=== PATIENT | male | born 1980 | race African-American/Black ===

== ENCOUNTER 2016-11-07 09:15 | Inpatient (IN) | payer MEDICARE, OTHER ==
[~2016-11-07 09:15] MED LIST: QUET50TA PO
[2016-11-07 09:19] VITALS: BP 141/100; PULSE 75; RESP 14; TEMP 97.9; O2SAT 95
--- NOTE | 2016-11-07 09:58 | PD ---
HPI Chief Complaint: Injury Time Seen by Provider: 09:51 Travel History International Travel<30 days: No Contact w/Intl Traveler<30days: No Traveled to known affect area: No History of Present Illness HPI 36-year-old male presents to the emergency department accompanied by his mother , who helps care for him secondary to his psych, with complaint of right shoulder pain after a fall 2 days ago. The mother states he has history of a epileptic seizures and she found him at his house, alone, on the floor and conscious at the time. He is not currently taking medications for seizures. EMS was called to the house and they said it was a nonemergent situation and the mother took him to [facility] where he was evaluated and was told he had fractures to his right shoulder. He was given an arm sling for support and told to follow-up with orthopedics, which they have not done. She says the shoulder has gotten more painful with swelling and she does not like what they told them and feels they did not do anything for him and wants to be reevaluated. The mother states she was told the shoulder was dislocated and they didn't even put back in place. Mother states the patient did have a CT scan of his head, because he did not recall the fall, which was normal per the mother. Denies fever, chills, nausea, vomiting. Allergies to shrimp. History of epileptic seizures, depression, anxiety, bipolar disorder. No other modifying factors or associated signs and symptoms. PFSH Past Medical History Bipolar Disorder: Yes Anxiety: Yes Depression: Yes Cancer: No Cardiovascular Problems: No Diabetes: No Endocrine: No Genitourinary: No Headaches: No Immune Disorder: No Musculoskeletal: No Neurologic: No Psychiatric: Yes ([place]) Reproductive: No Respiratory: No Schizophrenia: Yes Seizures: No Past Surgical History Abdominal Surgery: Yes Other Surgery: Yes ( hernia repair) Social History Alcohol Use: Yes Tobacco Use: Yes (2 PPD) Substance Use: Yes Allergies-Medications (Allergen,Severity, Reaction): Coded Allergies: Shrimp (Verified Allergy, Severe, 11/07/16) Reported Meds & Prescriptions Reported Meds & Active Scripts Active Reported Mirtazapine 30 Mg Tab 30 Mg PO HS [place] (Hydrocodone-Acetaminophen) 5-325 mg Tab 1 Tab PO TID PRN Seroquel XR (Quetiapine Fumarate) 150 Mg Tab 150 Mg PO DAILY Review of Systems Except as stated in HPI: all other systems reviewed are Neg Physical Exam Narrative GENERAL: Well-nourished, well-developed patient, in no acute distress SKIN: Warm and dry. HEAD: Atraumatic. Normocephalic. EYES: Pupils equal and round. No scleral icterus. No injection or drainage. ENT: Mucosa pink and moist. Airway patent. NECK: Supple. Trachea midline. CARDIOVASCULAR: Regular rate. RESPIRATORY: No accessory muscle use. GASTROINTESTINAL: Rounded. MUSCULOSKELETAL: Right shoulder is with tenderness on palpation; mildly edematous and without erythema or ecchymosis; limited range of motion and less than 45 abduction; shoulder does appear different to left, but no obvious deformity.. Shoulders equal. Right upper extremity is supple and non-tense with 2+ radial pulse and sensory intact and without erythema or edema. No obvious deformities. No clubbing. No cyanosis. No edema. NEUROLOGICAL: Awake and alert. Oriented 3. No obvious cranial nerve deficits. Motor grossly within normal limits. Normal speech. PSYCHIATRIC: Appropriate mood and affect; insight and judgment normal. Data Data Last Documented VS Vital Signs Date Time Temp Pulse Resp B/P Pulse Ox O2 Delivery O2 Flow Rate FiO2 11/07/16 09:19 97.9 75 14 141/100 95 Orders Shoulder, Complete (>2vws) (11/07/16 09:50) Ice/Cold Pack (11/07/16 09:50) Ibuprofen (Motrin) (11/07/16 10:00) Ct Shoulder W/O Contrast (11/07/16 ) Morphine Inj (Morphine Inj) (11/07/16 12:30) Basic Metabolic Panel (Bmp) (11/07/16 15:06) Complete Blood Count With Diff (11/07/16 15:06) Prothrombin Time / Inr (Pt) (11/07/16 15:06) Act Partial Throm Time (Ptt) (11/07/16 15:06) Chest, Single Ap (11/07/16 15:06) NPO (11/07/16 15:06) Consult Orthopedic (11/07/16 ) [facility] Medical Decision Making Medical Screen Exam Complete: Yes Emergency Medical Condition: Yes Medical Record Reviewed: Yes Differential Diagnosis Shoulder fracture, shoulder dislocation, medical clearance Narrative Course 36-year-old male with right shoulder injury after an apparent fall 2 days ago. He was evaluated at [facility] and was told he had a fractured shoulder. He was provided with an arm sling and apparently told to follow-up with orthopedic. The patient's mother is at the bedside and she says Uriel Rodriguez never did anything for them, and did not even put his dislocated shoulder back into place and wants his shoulder reevaluated. They were told to follow-up with orthopedic outpatient which they have not done. Shoulder x-ray ordered. Ibuprofen ordered. 1047: Right shoulder x-ray concludes: Last 24 hours Impressions Shoulder X-Ray 11/07/16 0950 Signed Impressions: Service Date/Time: Monday, November 07, 2016 10:13 - CONCLUSION: Comminuted proximal humeral fracture with avulsion fragments. Henry Martin MD Call Out to ortho placed. Dr. Fox ordered morphine. IV site was obtained. 1132: I spoke with Dr. Gentile, orthopedic surgeon, and he recommended CT of the shoulder. CT shoulder ordered. 1459: Right shoulder CT concludes an impacted fracture of the proximal humerus head as described in detail on the report. Call placed to orthopedic surgeon. 1510: I spoke with Dr. Gentile, orthopedic surgeon, and he recommended patient to be admitted for surgery today, consult to him, and admitted to medical. Preop orders entered. 1524: I spoke with BRENNEN Capone, and the patient will be admitted for further medical treatment. Report given. Physician Communication Physician Communication Dr. Gentile, orthopedic surgeon BRENNEN Capone Diagnosis Primary Impression: Right humeral fracture Qualified Code: S42.294D - Other closed nondisplaced fracture of proximal end of right humerus with routine healing, subsequent encounter Admitting Information Admitting Physician Requests: Admit Shahana Parrish Nov 07, 2016 09:58
[2016-11-07] MEDS ORDERED: IBUPROFEN 800 MG TAB PO ONE (10:00)
--- NOTE | 2016-11-07 10:29 | RADRPT ---
EXAM DATE/TIME: 11/07/2016 10:13 [facility] COMPARISON: No previous studies available for comparison. INDICATIONS : Right Shoulder Pain since Sunday MEDICAL HISTORY : None. SURGICAL HISTORY : None. ENCOUNTER: Initial ACUITY: 1 day PAIN SCORE: 10/10 LOCATION: Right upper extremity FINDINGS: Multiple view examination of the right shoulder demonstrates an apparent vertical fracture through th e proximal humerus extending from the head down into the metadiaphyseal region. Ossific fragments are seen medial to the joint which may represent avulsed components. Regional soft tissue swelling. The shoulder is low lying in the glenoid fossa but not dislocated. Osseous structures are otherwise inta ct. Visualized portions of the adjacent lung are clear. CONCLUSION: Comminuted proximal humeral fracture with avulsion fragments. Henry Martin MD on November 07, 2016 at 10:23 Board Certified Radiologist. This report was verified electronically.
[2016-11-07] MEDS ORDERED: NORC5TAB PO (11:55)
[2016-11-07] MEDS ORDERED: QUET150XR PO (11:55)
[2016-11-07] MEDS ORDERED: MIRT30TA PO (11:59)
[2016-11-07] MEDS ORDERED: PROPOFOL 200 MG/20 ML AMP IV ONE (12:00)
[2016-11-07] MEDS ORDERED: ONDANSETRON HCL 4 MG/2 ML VIAL IV PUSH ONE (12:00)
[2016-11-07] MEDS ORDERED: PHENYLEPH/NS 1000 MCG/10 ML SYR IV ONE (12:00)
[2016-11-07] MEDS ORDERED: LACTATED RINGER'S 1000 ML INJ 1,000 ML IV ONE (12:00)
[2016-11-07] MEDS ORDERED: NEOSTIGMINE 3 MG/3 ML SYR IV ONE (12:00)
[2016-11-07] MEDS ORDERED: MORPHINE SULFATE 4 MG/ML INJ IV PUSH ONE (12:30)
--- NOTE | 2016-11-07 14:26 | RADRPT ---
EXAM DATE/TIME: 11/07/2016 13:14 [facility] COMPARISON: CT FACIAL BONES W/O CONTRAST, June 17, 2015, 20:10. INDICATIONS : Fall 2 days ago, right shoulder pain and swelling. RADIATION DOSE: 15.00 CTDIvol (mGy) MEDICAL HISTORY : None SURGICAL HISTORY : None. ENCOUNTER: Initial ACUITY: 2 days PAIN SCALE: 8/10 LOCATION: Right shoulder TECHNIQUE: Volumetric scanning of the shoulder was performed. Using automated exposure control and adjustment o f the mA and/or kV according to patient size, radiation dose was kept as low as reasonably achievable to obtain optimal diagnostic quality images. FINDINGS: Problems with the findings: The examination demonstrates a comminuted fracture involving the right humeral head. There are 2 dist inct portions of the fracture. The first is through the proximal humerus. The second is a direct impa ction fracture of the humeral head against the glenoid. There are multiple fracture fragments arising from the anterior aspect of the humeral head. There is considerable flattening of the anterior aspec t of the humeral head. The glenoid itself has only a very small fracture along the posterior aspect. The scapula is intact. The clavicle is intact. The coracoid process is intact. The limited portion of lung apex visualized is clear. CONCLUSION: 1. Impacted fracture of the proximal humeral head. This is described in detail above. Jadon Dan MD on November 07, 2016 at 14:20 Board Certified Radiologist. This report was verified electronically.
[2016-11-07] MEDS ORDERED: SODIUM CHLOR 0.9% 1000 ML INJ 1,000 ML IV SCH (15:23)
[2016-11-07] MEDS ORDERED: ACETAMINOPHEN 325 MG TAB PO PRN ×2 (15:30→21:15)
[2016-11-07] MEDS ORDERED: ONDANSETRON HCL 4 MG/2 ML VIAL IVP PRN ×2 (15:30→21:15)
[2016-11-07] MEDS: DOCUSATE SODIUM 100 MG CAP PO SCH (15:30)
[2016-11-07] MEDS ORDERED: SODIUM CHLORIDE 0.9% FLUSH 10 ML FLUSH IV FLUSH PRN ×2 (15:30→21:15)
[2016-11-07 15:40] LABS: AUTOMATED NEUTROPHIL # 5.7 TH/MM3 (1.8-7.7); BASOPHIL % 0.5 % (0.0-2.0); EOSINOPHIL # 0.3 TH/MM3 (0-0.4); EOSINOPHIL % 2.8 % (0.0-4.0); HEMATOCRIT 42.7 % (39.0-51.0); HEMO FLAGS DIFF FINAL; LYMPH % 27.1 % (9.0-44.0); LYMPHOCYTE # 2.6 TH/MM3 (1.0-4.8); MEAN CELL VOLUME 89.3 FL (80.0-100.0); MEAN CORPUSCULAR HEMOGLOBIN 29.8 PG (27.0-34.0); MEAN CORPUSCULAR HGB CONC 33.4 % (32.0-36.0); MONO % 10.1 % (0.0-8.0); NEUT % 59.5 % (16.0-70.0); PLATELET COUNT 170 TH/MM3 (150-450); RED BLOOD COUNT 4.79 MIL/MM3 (4.50-5.90); WHITE BLOOD COUNT 9.5 TH/MM3 (4.0-11.0)
[2016-11-07 15:48] LABS: APTT (PATIENT) 30.8 SEC (24.3-30.1); PROTHROMBIN TIME - PATIENT 10.6 SEC (9.8-11.6)
[2016-11-07 15:56] LABS: BICARBONATE 31.6 MEQ/L (21.0-32.0); POTASSIUM 4.1 MEQ/L (3.5-5.1)
--- NOTE | 2016-11-07 16:22 | RADRPT ---
EXAM DATE/TIME: 11/07/2016 15:14 [facility] COMPARISON: No previous studies available for comparison. INDICATIONS : Evaluate for pneumonia, pneumothorax or communicable disease. Pre op for shoulder surgery today. MEDICAL HISTORY : None. SURGICAL HISTORY : None. ENCOUNTER: Initial ACUITY: 1 day PAIN SCORE: 0/10 LOCATION: Left chest FINDINGS: A single view of the chest demonstrates the lungs to be symmetrically aerated without evidence of mas s, infiltrate or effusion. The cardiomediastinal contours are unremarkable. Right humeral head fract ure noted. CONCLUSION: No acute disease. Bonifacio Avila MD on November 07, 2016 at 16:20 Board Certified Radiologist. This report was verified electronically.
[2016-11-07 17:05] VITALS: BP 133/88; PULSE 78; RESP 15; O2SAT 98
[2016-11-07] MEDS ORDERED: GENTAMICIN SULFATE 80 MG/2 ML VIAL ONE (17:11)
[2016-11-07 17:30] VITALS: BP 136/86; PULSE 75; RESP 17; TEMP 96; O2SAT 99
[2016-11-07] MEDS ORDERED: ACETAMINOPHEN 1000 MG/100 ML VIAL IV ONE (18:21)
[2016-11-07] MEDS ORDERED: DEXAMETHASONE SOD PHOS 4 MG/ML VIAL ONE (18:21)
[2016-11-07] MEDS ORDERED: FAMOTIDINE 20 MG/2 ML VIAL ONE (18:22)
--- NOTE | 2016-11-07 18:24 | MB ---
cc: HANNAH ARELLANO DATE OF CONSULTATION 11/07/16 REASON FOR CONSULTATION Right shoulder fracture-dislocation. HISTORY OF PRESENT ILLNESS Corbin Edmondson is a 36-year-old male who probably sustained a seizure two days ago which resulted in a fracture-dislocation of his right shoulder. He was first seen at [facility] [facility] and he was told to follow up with orthopedic surgeon an outpatient setting. He had been in chronic pain and presented to the ER at [facility] today where x-rays were highly suspicious for any fracture dislocation which was confirmed with a CT scan. He has a very large compression fracture involving the anterior aspect of the articular surface of the humeral head with the shoulder in a posterior lock dislocation. The patient remains in marked pain. He is being admitted to the medical service for further medical workup including seizure workup. He is indicated for surgical management of his shoulder. Consultation is requested with the undersigned. PAST MEDICAL HISTORY Negative for active medical problem. MEDICATIONS She takes no regular medications. PAST SURGICAL HISTORY Umbilical hernia repair. ALLERGIES He has no known drug allergies. 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 He does use tobacco and he does use alcohol. He does have some past history of use of marijuana and occasional cocaine, but he denies active use of these drugs now and denies ever having used intravenous drugs. PHYSICAL EXAMINATION GENERAL: Alert, oriented, appropriate, moderate distress with his right shoulder significantly swollen and his arm folded across his abdomen. NECK: His cervical spine is nontender with full range motion. HEENT: His extraocular muscles are intact. His face exam is normal. EXTREMITIES: Left upper extremity exam is normal. Lower extremity exam is normal. His right shoulder shows marked swelling and tenderness to palpation. Range of motion not tested. Elbow and wrist nontender to direct palpation. NEUROLOGIC: No neurologic deficit is identified. Pulses intact and normal. INTEGUMENTARY: Normal. IMAGING STUDIES The x-rays and CT scan are reviewed which is consistent with a posterior fracture dislocation which is associated with seizure disorder. MEDICAL DECISION MAKING His condition was discussed. The options of treatment were discussed. He does say that he was drinking prior to this happening and that sounds like it is probably an alcoholic seizure. He has no history of prior seizure. Officially, he is being admitted to the medical service, but I see no obvious contraindication to proceeding with surgical management when an OR team is available. RECOMMENDATION Open reduction and internal fixation of right shoulder fracture-dislocation. The goal of the surgery is to reduce the shoulder and to repair the main metaphyseal healed fracture fragments to themselves. Additionally, we talked about possible need for a partial shoulder replacement or some type of resurfacing in the future or even the possibility of a total shoulder replacement. We talked about probable use of some type of abduction or gunslinger brace. Surgical technique was discussed including discussion of risk of infection, nerve damage, blood vessel damage, anesthetic complications, medical complications and unforeseen possible complications. Additionally, we talked about a significant likelihood of repeat dislocation, further fracturing and need for more extensive intervention including the possibility of some type of shoulder replacement. All of his questions were answered. A detailed informed consent was obtained. MD NATALIA Holder/ /4:42 PM /6:06 PM
[2016-11-07] MEDS ORDERED: MIDAZOLAM HCL 2 MG/2 ML VIAL ONE (18:25)
[2016-11-07] MEDS ORDERED: fentaNYL CITRATE 250 MCG/5 ML AMP ONE ×2 (18:26→20:48)
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
[2016-11-07] MEDS ORDERED: LORazepam 1 MG TAB PO ONE (18:45)
[2016-11-07] MEDS ORDERED: ceFAZolin 2 GM PREMIX 50 ML ONE (19:02)
[2016-11-07 20:12] LABS: MAGNESIUM 2.4 MG/DL (1.5-2.5)
[2016-11-07 20:24] LABS: CKMB 1.3 NG/ML (0.5-3.6)
[2016-11-07] MEDS ORDERED: SODIUM CHLORIDE 0.9% FLUSH 10 ML FLUSH IV FLUSH SCH (21:00)
--- NOTE | 2016-11-07 21:05 | PD.OP ---
Operative Report Preoperative Diagnosis: (1) Closed fracture dislocation of right shoulder joint Postoperative Diagnosis: (1) Closed fracture dislocation of right shoulder joint Procedure: Right shoulder open repair of posterior fracture/dislocation Anesthesia: General Surgeon: Rosales Gentile MD Frame Operator(s): Johnny BETANCUR Resident Surgeon: none Operation and Findings: see dictation Rosales Gentile MD Nov 07, 2016 21:05
[2016-11-07] MEDS ORDERED: MISCELLANEOUS PHARMACY INFORMATION XX ONE (21:15)
[2016-11-07] MEDS ORDERED: NALOXONE HCL 0.4 MG/ML AMP IV PRN (21:15)
[2016-11-07] MEDS ORDERED: diphenhydrAMINE HCL 25 MG CAP PO PRN (21:15)
[2016-11-07] MEDS ORDERED: Post-op Orders (for Pharmacy) MISC XX ONE (21:15)
[2016-11-07] MEDS ORDERED: MISCELLANEOUS NURSING INFORMATION XX PRN (21:15)
[2016-11-07] MEDS ORDERED: *morphine SULFATE 8 MG/ML PERIprocedure ONLY ONE (21:34)
[2016-11-07] MEDS ORDERED: *MEPERIDINE 25 MG INJ VIAL PERIprocedural Use ONLY ONE (21:35)
[2016-11-07] MEDS: DEXT 5%-NACL 0.45% 1000 ML INJ 1,000 ML IV SCH (21:45)
[2016-11-07] MEDS: PCA - TOTAL MG MORPHINE DELIVERED PER SHIFT SCH (22:00)
[2016-11-07] MEDS: MORPHINE SULFATE 30 MG/30 ML PCA IV SCH (22:16)
[2016-11-07] MEDS: MIRTAZAPINE 15 MG TAB PO SCH (22:26)
[2016-11-07] MEDS: QUEtiapine FUMARATE 25 MG TAB PO SCH (22:26)
[2016-11-07] MEDS: DIVALPROEX SODIUM E.R. 500 MG TAB PO SCH (22:26)
[2016-11-07 22:42] VITALS: BP 161/97; PULSE 79; RESP 17; TEMP 97.2; O2SAT 96
--- NOTE | 2016-11-07 22:59 | RADRPT ---
EXAM DATE/TIME: 11/07/2016 20:42 [facility] COMPARISON: SHOULDER RIGHT COMPLETE (>2VWS), November 07, 2016, 10:13. INDICATIONS : ORIF right shoulder. MEDICAL HISTORY : None. SURGICAL HISTORY : None. ENCOUNTER: Subsequent ACUITY: 2 days PAIN SCORE: Non-responsive. LOCATION: Right upper extremity FINDINGS: 5 images were recorded digitally using C-arm in the operating room. There are total of 5 screws in t he proximal humerus. CONCLUSION: Intraoperative images. Rao Maciel MD on November 07, 2016 at 22:56 Board Certified Radiologist. This report was verified electronically.
--- NOTE | 2016-11-07 23:33 | HHI.HP ---
[facility] Primary [facility] Physician Non-Staff Admission Diagnosis right proximal humeral fracture, dislocation Diagnoses: (1) Right humeral fracture Diagnosis: Principal (2) Seizure cerebral Diagnosis: Principal Chief Complaint: pain to the right shoulder Travel History International Travel<30 Days: No Contact w/Intl Traveler <30 Da: No Traveled to Known Affected Are: No History of Present Illness patient is a 36 y/o male, not a good historian, who apparently fell about two days ago,presented to ER with pain to the right shoulder. he doesn't remember how he fell. he's not sure if he had a seizure in the past . he was found to have right humeral fracture for which he underwent surgical repair. at the time of my evaluation he was resting comfortably with no acute distress with mild pain to the right upper extremity. Review of Systems ROS Limitations: Poor Historian Constitutional: DENIES: Fever, Weight loss, Chills, Night Sweats Eyes: DENIES: Blurred vision, Diplopia, Vision loss, Double Vision Ears, nose, mouth, throat: DENIES: Tinnitus, Vertigo, Throat pain, Epistaxis Respiratory: DENIES: Apneas, Cough, Snoring, Wheezing, Hemoptysis, Sputum production, Shortness of breath Cardiovascular: DENIES: Chest pain, Palpitations, Syncope, Dyspnea on Exertion , PND, Lower Extremity Edema, Orthopnea, Claudication Gastrointestinal: DENIES: Abdominal pain, Black stools, Bloody stools, Constipation, Diarrhea, Nausea, Vomiting, Difficulty Swallowing, Anorexia Genitourinary: DENIES: Urinary frequency, Urgency, Hematuria, Dysuria Musculoskeletal: COMPLAINS OF: Joint pain (right shoulder), DENIES: Muscle aches, Stiffness, Joint Swelling Integumentary: DENIES: Rash Neurologic: DENIES: Abnormal gait, Headache, Localized weakness, Paresthesias, Seizures, Speech Problems, Tremor, Poor Balance Psychiatric: DENIES: Anxiety, Confusion, Mood changes, Depression, Hallucinations, Agitation, Suicidal Ideation, Homicidal Ideation, Delusions Past Family Social History Past Medical History bipolar disorder seizure disorder? Past Surgical History hernia repair Reported Medications Mirtazapine 30 Mg Tab 30 Mg PO HS [place] (Hydrocodone-Acetaminophen) 5-325 mg Tab 1 Tab PO TID PRN Seroquel XR (Quetiapine Fumarate) 150 Mg Tab 150 Mg PO DAILY Allergies: Coded Allergies: Shrimp (Verified Allergy, Severe, 11/07/16) Active Ordered Medications Current Medications Ibuprofen (Motrin) 800 mg ONCE ONCE PO Last administered on 11/07/16 10:08; Start 11/07/16 at 10:00; Stop 11/07/16 at 10:01; Status DC Morphine Sulfate 4 mg 4 mg ONCE ONCE IV PUSH Last administered on 11/07/16 12: 30; Start 11/07/16 at 12:30; Stop 11/07/16 at 12:31; Status DC Sodium Chloride (NS 1000 ml Inj) 1,000 ml @ 100 mls/hr Q10H IV Last administered on 11/07/16 16:01; Start 11/07/16 at 15:23; Stop 11/07/16 at 21:19; Status DC Sodium Chloride (NS Flush) 2 ml UNSCH PRN IV FLUSH FLUSH AFTER USING IV ACCESS ; Start 11/07/16 at 15:30; Stop 11/07/16 at 21:20; Status DC Sodium Chloride (NS Flush) 2 ml BID IV FLUSH ; Start 11/07/16 at 21:00; Stop 11/07 at 21:20; Status DC Acetaminophen (Tylenol) 650 mg Q4H PRN PO TEMP > 100.4; Start 11/07/16 at 15:30 ; Stop 11/07/16 at 21:18; Status DC Ondansetron HCl (Zofran Inj) 4 mg Q6H PRN IVP NAUSEA OR VOMITING; Start at 15:30; Stop 11/07/16 at 21:17; Status DC Docusate Sodium (Colace) 100 mg Q12H PO ; Start 11/07/16 at 15:30 Magnesium Hydroxide (Milk Of Magnesia Liq) 30 ml Q12H PRN PO CONSTIPATION; Start 11/07/16 at 15:30 Mirtazapine (Remeron) 30 mg HS PO Last administered on 11/07/16 22:26; Start at 21:00 Non-Formulary Medication 150 mg DAILY PO ; Start 11/08/16 at 09:00; Status UNV Quetiapine Fumarate (SEROquel) 75 mg BID PO Last administered on 11/07/16 22:26 ; Start 11/07/16 at 21:00 Gentamicin Sulfate (Gentamicin Inj) 160 mg STK-MED ONCE .ROUTE Last administered on 11/07/16 19:17; Start 11/07/16 at 17:11; Stop 11/07/16 at 17:12; Status DC Dexamethasone Sodium Phosphate (Decadron Inj) 4 mg STK-MED ONCE .ROUTE ; Start 11/07/16 at 18:21; Stop 11/07/16 at 18:22; Status DC Acetaminophen (Ofirmev Inj) 1,000 mg STK-MED ONCE IV ; Start 11/07/16 at 18:21; Stop 11/07/16 at 18:22; Status DC Famotidine (Pepcid Inj) 20 mg STK-MED ONCE .ROUTE ; Start 11/07/16 at 18:22; Stop 11/07/16 at 18:23; Status DC Midazolam HCl (Versed Inj) 2 mg STK-MED ONCE .ROUTE ; Start 11/07/16 at 18:25; Stop 11/07/16 at 18:26; Status DC Fentanyl Citrate (fentaNYL INJ) 250 mcg STK-MED ONCE .ROUTE ; Start 11/07/16 at 18:26; Stop 11/07/16 at 18:27; Status DC Divalproex Sodium (Depakote Er) 500 mg BID PO Last administered on 11/07/16 22: 26; Start 11/07/16 at 21:00 Lorazepam 1 mg 1 mg ONCE ONCE PO ; Start 11/07/16 at 18:45; Stop 11/07/16 at 18: 46; Status DC Cefazolin Sodium/ Dextrose (Ancef 2 Gm Premix) 50 ml @ As Directed STK-MED ONCE .ROUTE Last administered on 11/07/16 19:01; Start 11/07/16 at 19:02; Stop at 19:03; Status DC Fentanyl Citrate 250 mcg 250 mcg STK-MED ONCE .ROUTE ; Start 11/07/16 at 20:48; Stop 11/07/16 at 20:49; Status DC Dextrose/Sodium Chloride (D5W-1/2 NS 1000 ml Inj) 1,000 ml @ 100 mls/hr Q10H IV Last administered on 11/07/16t 21:45; Start 11/07/16 at 22:00 Sodium Chloride (NS Flush) 2 ml UNSCH PRN IV FLUSH FLUSH AFTER USING IV ACCESS ; Start 11/07/16 at 21:15 Sodium Chloride (NS Flush) 2 ml BID IV FLUSH ; Start 11/08/16 at 09:00 Miscellaneous Information STAT ONCE XX ; Start 11/07/16 at 21:15; Stop 11/07/16 at 21:26; Status DC Cefazolin Sodium/ Dextrose (Ancef 2 Gm Premix) 50 ml @ 100 mls/hr Q8H IV ; Start 11/08/16 at 02:00; Stop 11/08/16 at 02:01 Miscellaneous Information UNSCH PRN XX SEE LABEL COMMENTS; Start 11/07/16 at 21 :15 Miscellaneous Medication ([facility] [place] [facility] Information) ONCE ONCE XX ; Start 11/07 at 21:15; Stop 11/07/16 at 21:17; Status DC Oxycodone/ Acetaminophen (Percocet 5-325 Mg) 1 tab Q4H PRN PO PAIN LESS THAN 5 ON SCALE; Start 11/07/16 at 21:15 Oxycodone/ Acetaminophen (Percocet 5-325 Mg) 2 tab Q6H PRN PO PAIN GREATER THAN/EQUAL TO 5; Start 11/07/16 at 21:15 Acetaminophen (Tylenol) 650 mg Q6H PRN PO Pain <5 or Temperature > 101.5; Start 11/07/16 at 21:15 Ondansetron HCl (Zofran Inj) 4 mg Q4H PRN IVP NAUSEA OR VOMITING; Start at 21:15 Calcium/Vitamin D (Oscal-D 250-125) 250 mg TID PO ; Start 11/08/16 at 09:00 Multivitamins/ Minerals Therapeutic (Theragran M Tab) 1 tab DAILY PO ; Start 11/08/16 at 09:00 Diphenhydramine HCl (Benadryl) 25 mg Q6H PRN PO ITCHING; Start 11/07/16 at 21:15 Thiamine HCl (Vitamin B1) 100 mg DAILY PO ; Start 11/08/16 at 09:00 Folic Acid (Folate) 1 mg DAILY PO ; Start 11/08/16 at 09:00 Naloxone HCl (Narcan Inj) 0.4 mg UNSCH PRN IV RESPIRATORY RATE LESS THAN 10; Start 11/07/16 at 21:15 Morphine Sulfate (Morphine 1 Mg/ ml INFORMATION TECHNOLOGY ASSISTANT) 30 mg UNSCH IV Last administered on 22:16; Start 11/07/16 at 21:15 INFORMATION TECHNOLOGY ASSISTANT Dosage Infused (Pha) 1 Q8HR .XX Last administered on 11/07/16 22:00; Start 11/07/16 at 22:00 Morphine Sulfate (*morphine INJ PERIprocedure ONLY) 8 mg STK-MED ONCE .ROUTE Last administered on 11/07/16 21:30; Start 11/07/16 at 21:34; Stop 11/07/16 at 21: 35; Status DC Meperidine HCl (*DEMEROL INJ PERIprocedural ONLY) 25 mg STK-MED ONCE .ROUTE Last administered on 11/07/16 21:30; Start 11/07/16 at 21:35; Stop 11/07/16 at 21: 36; Status DC Family History stroke in mother. Social History smokes a couple of cigarettes a day- snores cocaine occasionally. Physical Exam Vital Signs Vital Signs Date Time Temp Pulse Resp B/P Pulse Ox O2 Delivery O2 Flow Rate FiO2 11/07/16 22:42 97.2 79 17 161/97 96 11/07/16 22:16 16 11/07/16 22:10 98.3 77 15 163/94 Nasal Cannula 3 11/07/16 22:00 67 15 164/94 98 Nasal Cannula 3 11/07/16 22:00 15 11/07/16 21:45 68 16 168/96 97 Nasal Cannula 3 11/07/16 21:30 94 16 166/99 97 Nasal Cannula 4 11/07/16 21:22 98.9 83 15 173/101 93 Nasal Cannula 4 11/07/16 17:30 96.0 75 17 136/86 99 11/07/16 17:05 78 15 133/88 98 Room Air 11/07/16 09:19 97.9 75 14 141/100 95 Physical Exam GENERAL: This is a well-nourished, well-developed patient, in no apparent distress. SKIN: No rashes, ecchymoses or lesions. Cool and dry. HEAD: Atraumatic. Normocephalic. No temporal or scalp tenderness. EYES: Pupils equal round and reactive. Extraocular motions intact. No scleral icterus. No injection or drainage. ENT: Nose without bleeding, purulent drainage or septal hematoma. Throat without erythema, tonsillar hypertrophy or exudate. Uvula midline. Airway patent. NECK: Trachea midline. No JVD or lymphadenopathy. Supple, nontender, no meningeal signs. CARDIOVASCULAR: Regular rate and rhythm without murmurs, gallops, or rubs. RESPIRATORY: Clear to auscultation. Breath sounds equal bilaterally. No wheezes , rales, or rhonchi. GASTROINTESTINAL: Abdomen soft, non-tender, nondistended. No hepato-splenomegaly , or palpable masses. No guarding. MUSCULOSKELETAL:right shoulder in sling. NEUROLOGICAL: Awake and alert. Cranial nerves II through XII intact. Motor and sensory grossly within normal limits. Five out of 5 muscle strength in all muscle groups. Normal speech. Laboratory Laboratory Tests Test 11/07/16 15:17 White Blood Count 9.5 Red Blood Count 4.79 Hemoglobin 14.3 Hematocrit 42.7 Mean Corpuscular Volume 89.3 Mean Corpuscular Hemoglobin 29.8 Mean Corpuscular Hemoglobin 33.4 Concent Red Cell Distribution Width 15.0 Platelet Count 170 Mean Platelet Volume 10.9 Neutrophils (%) (Auto) 59.5 Lymphocytes (%) (Auto) 27.1 Monocytes (%) (Auto) 10.1 Eosinophils (%) (Auto) 2.8 Basophils (%) (Auto) 0.5 Neutrophils # (Auto) 5.7 Lymphocytes # (Auto) 2.6 Monocytes # (Auto) 1.0 Eosinophils # (Auto) 0.3 Basophils # (Auto) 0.0 CBC Comment DIFF FINAL Differential Comment Erythrocyte Sedimentation Rate 31 Prothrombin Time 10.6 Prothromb Time International 1.0 Ratio Activated Partial 30.8 Thromboplast Time Sodium Level 138 Potassium Level 4.1 Chloride Level 101 Carbon Dioxide Level 31.6 Anion Gap 5 Blood Urea Nitrogen 5 Creatinine 1.12 Estimat Glomerular Filtration 90 Rate Random Glucose 100 Calcium Level 8.9 Magnesium Level 2.4 Total Creatine Kinase 3503 Creatine Kinase MB 1.3 Creatine Kinase MB % 0.0 Vitamin B12 Level 349 Thyroid Stimulating Hormone 1.720 3rd Gen Valproic Acid (Depakene) Level 5 Result Diagram: 11/07/16 1517 11/07/16 1517 Imaging Last Impressions Chest X-Ray 11/07/16 1506 Signed Impressions: Service Date/Time: Monday, November 07, 2016 15:14 - CONCLUSION: No acute disease. Bonifacio Avila MD Shoulder X-Ray 11/07/16 0950 Signed Impressions: Service Date/Time: Monday, November 07, 2016 10:13 - CONCLUSION: Comminuted proximal humeral fracture with avulsion fragments. Henry Martin MD Upper Extremity CT 11/07/16 0000 Signed Impressions: Service Date/Time: Monday, November 07, 2016 13:14 - CONCLUSION: 1. Impacted fracture of the proximal humeral head. This is described in detail above. Jadon Dan MD Assessment and Plan Assessment and Plan A/P - right humeral fracture after a fall- s/p open repair continue with pain control and PT/OT- management per ortho -possible seizure EEG and MRI brain pending. seizure precautions- continue with Depakote- neurology consult appreciated. -rhabdomyolysis- continue IV fluid and monitor the CPK level. -bipolar disorder; resumed home meds -DVT prophylaxis; with SCD's Discussed Condition With the patient. Physician Certification 2 Midnight Certification Type: Admission for Inpatient Services Order for Inpatient Services The services are ordered in accordance with Medicare regulations or non- Medicare payer requirements, as applicable. In the case of services not specified as inpatient-only, they are appropriately provided as inpatient services in accordance with the 2-midnight benchmark. Estimated LOS (days): 2 days is the estimated time the patient will need to remain in the hospital, assuming treatment plan goals are met and no additional complications. Post-Hospital Plan: Home Problem Qualifiers (1) Right humeral fracture: Qualified Code: S42.294D - Other closed nondisplaced fracture of proximal end of right humerus with routine healing, subsequent encounter Shavon Isbell MD Nov 07, 2016 23:33
[2016-11-08] MEDS ORDERED: ceFAZolin 2 GM PREMIX 50 ML IV SCH (02:00)
[2016-11-08] MEDS: DOCUSATE SODIUM 100 MG CAP PO SCH ×2 (03:30→18:08)
[2016-11-08 04:20] VITALS: BP 156/92; PULSE 62; RESP 17; TEMP 98.3; O2SAT 97
[2016-11-08] MEDS: PCA - TOTAL MG MORPHINE DELIVERED PER SHIFT SCH ×3 (05:08→22:00)
[2016-11-08 06:27] VITALS: O2SAT 94
--- NOTE | 2016-11-08 07:18 | PD.ORT.PN ---
Subjective Subjective Remarks Patient comfortable. Pain controlled. NAD. Objective Vitals Vital Signs Date Time Temp Pulse Resp B/P Pulse Ox O2 Delivery O2 Flow Rate FiO2 11/08/16 05:08 18 11/08/16 04:20 98.3 62 17 156/92 97 11/07/16 22:42 97.2 79 17 161/97 96 11/07/16 22:16 16 11/07/16 22:10 98.3 77 15 163/94 Nasal Cannula 3 11/07/16 22:00 67 15 164/94 98 Nasal Cannula 3 11/07/16 22:00 15 11/07/16 21:45 68 16 168/96 97 Nasal Cannula 3 11/07/16 21:30 94 16 166/99 97 Nasal Cannula 4 11/07/16 21:22 98.9 83 15 173/101 93 Nasal Cannula 4 11/07/16 17:30 96.0 75 17 136/86 99 11/07/16 17:05 78 15 133/88 98 Room Air 11/07/16 09:19 97.9 75 14 141/100 95 I/O 11/07/16 11/07/16 11/07/16 11/08/16 11/08/16 11/08/16 07:00 15:00 23:00 07:00 15:00 23:00 Intake Total 2260 ml 845 ml Output Total 1100 ml 2150 ml Balance 1160 ml -1305 ml Intake Oral 360 ml 480 ml IV Total 300 ml 365 ml Other 1600 ml Output Urine Total 900 ml 2150 ml Estimated Blood Loss 200 ml Other 0 ml # Bowel Movements 0 0 Result Diagram: 11/07/16 1517 11/07/16 1517 Other Results Laboratory Tests Test 11/07/16 15:17 Prothrombin Time 10.6 SEC (9.8-11.6) Prothromb Time International 1.0 RATIO Ratio Imaging Last 24 hours Impressions Chest X-Ray 11/07/16 1506 Signed Impressions: Service Date/Time: Monday, November 07, 2016 15:14 - CONCLUSION: No acute disease. Bonifacio Avila MD Shoulder X-Ray 11/07/16 0950 Signed Impressions: Service Date/Time: Monday, November 07, 2016 10:13 - CONCLUSION: Comminuted proximal humeral fracture with avulsion fragments. Henry Martin MD Procedures Right shoulder open repair of posterior fracture/dislocation Objective Remarks Right shoulder dressing in place C/D/I abduction pillow in place +sensation 2+ radial pulses good movement of digits Assessment & Plan Ortho Post Op Day #: 1 Problem List: (1) Closed fracture dislocation of right shoulder joint Assessment and Plan POD #1 Right shoulder open repair of posterior fracture/dislocation Pain management - DECK MECHANIC and Percocet Order for gun-slinger brace, in neutral position, to be worn at all times. Physical therapy - gait training only. No therapy to right shoulder. Continue standard meds D/C planning - anticipating home Monitor Johnny Araiza Nov 08, 2016 07:18
[2016-11-08 07:34] LABS: ALT (GPT) 28 U/L (12-78); ANION GAP 4 MEQ/L (5-15); AST (GOT) 37 U/L (15-37); BICARBONATE 34.6 MEQ/L (21.0-32.0); BLOOD UREA NITROGEN 7 MG/DL (7-18); CHLORIDE 102 MEQ/L (98-107); GLOMERULAR FILTRATION RATE 84 ML/MIN (>89); POTASSIUM 4.2 MEQ/L (3.5-5.1); SODIUM (NA) 141 MEQ/L (136-145)
[2016-11-08 07:48] LABS: ALKALINE PHOSPHATASE 81 U/L (45-117); CREATINE KINASE 2737 U/L (39-308); TOTAL BILIRUBIN ADULT 0.3 MG/DL (0.2-1.0)
--- NOTE | 2016-11-08 07:49 | HHI.PR ---
Subjective Remarks The patient is seen in the chair, appears in not acute distress. However he says he has pain in his shoulder. He is using the TIN CAN FEEDER pump. No nausea, vomiting, diarrhea or constipation. Denies chest pain or shortness of breath. Says he did not have any seizures. Denies fevers or chills. No muscle pain Objective Vitals Vital Signs Date Time Temp Pulse Resp B/P Pulse Ox O2 Delivery O2 Flow Rate FiO2 11/08/16 07:15 Room Air 11/08/16 06:27 94 Nasal Cannula 1.00 11/08/16 05:08 18 11/08/16 04:20 98.3 62 17 156/92 97 11/07/16 22:42 97.2 79 17 161/97 96 11/07/16 22:16 16 11/07/16 22:10 98.3 77 15 163/94 Nasal Cannula 3 11/07/16 22:00 67 15 164/94 98 Nasal Cannula 3 11/07/16 22:00 15 11/07/16 21:45 68 16 168/96 97 Nasal Cannula 3 11/07/16 21:30 94 16 166/99 97 Nasal Cannula 4 11/07/16 21:22 98.9 83 15 173/101 93 Nasal Cannula 4 11/07/16 17:30 96.0 75 17 136/86 99 11/07/16 17:05 78 15 133/88 98 Room Air 11/07/16 09:19 97.9 75 14 141/100 95 I/O 11/07/16 11/07/16 11/07/16 11/08/16 11/08/16 11/08/16 07:00 15:00 23:00 07:00 15:00 23:00 Intake Total 2260 ml 845 ml Output Total 1100 ml 2150 ml Balance 1160 ml -1305 ml Intake Oral 360 ml 480 ml IV Total 300 ml 365 ml Other 1600 ml Output Urine Total 900 ml 2150 ml Estimated Blood Loss 200 ml Other 0 ml # Bowel Movements 0 0 Result Diagram: 11/07/16 1517 11/08/16 0650 Imaging Last Impressions Chest X-Ray 11/07/16 1506 Signed Impressions: Service Date/Time: Monday, November 07, 2016 15:14 - CONCLUSION: No acute disease. Bonifacio Avila MD Shoulder X-Ray 11/07/16 0950 Signed Impressions: Service Date/Time: Monday, November 07, 2016 10:13 - CONCLUSION: Comminuted proximal humeral fracture with avulsion fragments. Henry Martin MD Upper Extremity CT 11/07/16 0000 Signed Impressions: Service Date/Time: Monday, November 07, 2016 13:14 - CONCLUSION: 1. Impacted fracture of the proximal humeral head. This is described in detail above. Jadon Dan MD Objective Remarks GENERAL: 36-year-old male well nourished, well developed patient appears in not acute distress. SKIN: Warm and dry. HEAD: Normocephalic. EYES: No scleral icterus. No injection or drainage. NECK: Supple, trachea midline. No JVD or lymphadenopathy. CARDIOVASCULAR: Regular rate and rhythm without murmurs, gallops, or rubs. RESPIRATORY: Breath sounds equal bilaterally. No accessory muscle use. GASTROINTESTINAL: Abdomen soft, non-tender, nondistended. MUSCULOSKELETAL: Left shorter about in sling. No cyanosis, or edema. BACK: Nontender without obvious deformity. No CVA tenderness. Procedures S/P Right shoulder open repair of posterior fracture/dislocation by Dr Steven alonzo 11/08/16 A/P Problem List: (1) Right humeral fracture ICD Code: S42.301A Status: Acute (2) Seizure cerebral ICD Code: I67.89 Status: Acute Assessment and Plan Right humeral fracture after a fall- (Closed fracture dislocation of the right shoulder joint) S/P Right shoulder open repair of posterior fracture/dislocation by Dr Steven alonzo 11/08/16 Continue with pain control and PT/OT- management per ortho Possible seizure EEG and MRI brain pending. seizure precautions- continue with Depakote- neurology consult appreciated. Rhabdomyolysis- continue IV fluid and monitor the CPK level. CPK improving. Monitor also kidney function. Cont IVF. -bipolar disorder; resumed home meds -DVT prophylaxis; with SCD's Discussed Condition With the patient, nurse. Discharge when cleared by improved and cleared by consultants. Problem Qualifiers (1) Right humeral fracture: Qualified Code: S42.294D - Other closed nondisplaced fracture of proximal end of right humerus with routine healing, subsequent encounter Isabelle Pricne MD Nov 08, 2016 07:49
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
[2016-11-08 08:00] VITALS: BP 153/93; PULSE 77; RESP 16; TEMP 97.5; O2SAT 100
[2016-11-08] MEDS: DEXT 5%-NACL 0.45% 1000 ML INJ 1,000 ML IV SCH ×2 (08:00→18:00)
[2016-11-08 08:21] LABS: CKMB 1.5 NG/ML (0.5-3.6)
[2016-11-08] MEDS: CALCIUM/VITAMIN D 250 MG/125 U TAB PO SCH ×3 (08:28→18:08)
[2016-11-08] MEDS: QUEtiapine FUMARATE 25 MG TAB PO SCH ×2 (08:28→20:55)
[2016-11-08] MEDS: FOLIC ACID 1 MG TAB PO SCH (08:28)
[2016-11-08] MEDS: MULTIVITAMINS/MINERALS THERAPEUTIC TAB PO SCH (08:28)
[2016-11-08] MEDS: DIVALPROEX SODIUM E.R. 500 MG TAB PO SCH ×2 (08:28→20:55)
[2016-11-08] MEDS: SODIUM CHLORIDE 0.9% FLUSH 10 ML FLUSH IV FLUSH SCH ×2 (08:28→20:55)
[2016-11-08] MEDS: THIAMINE HCL 100 MG TAB PO SCH (08:28)
[2016-11-08] MEDS ORDERED: QUETIAPINE 150 MG PO SCH (09:00)
[2016-11-08 11:46] VITALS: BP 151/90; PULSE 80; RESP 17; TEMP 98.7; O2SAT 97
[2016-11-08] MEDS ORDERED: DEPA500T3 PO (11:59)
[2016-11-08] MEDS ORDERED: NORC5TAB PO (11:59)
[2016-11-08] MEDS ORDERED: VITA100T2 PO (11:59)
[2016-11-08] MEDS: oxyCODONE/ACETAMINOPHEN 5 MG/325 MG TAB PO PRN (13:11)
--- NOTE | 2016-11-08 15:04 | RADRPT ---
EXAM DATE/TIME: 11/08/2016 13:58 [place] COMPARISON: No previous studies available for comparison. INDICATIONS : Epilepsy. MEDICAL HISTORY : None. SURGICAL HISTORY : Rotator cuff, right. ENCOUNTER: Subsequent ACUITY: 3 day PAIN SCORE: 0/10 LOCATION: head. TECHNIQUE: Multiplanar, multisequence MRI of the brain was performed without contrast. FINDINGS: CEREBRUM: The ventricles are normal for age. No evidence of midline shift, mass lesion, hemorrhage or acute in farction. No extraaxial fluid collections are seen. The pituitary gland and suprasellar cistern are normal in configuration. WHITE MATTER: No significant signal abnormalities are seen in the white matter. POSTERIOR FOSSA: The cerebellum and brainstem are intact. The 4th ventricle is midline. The cerebellopontine angle is unremarkable. The cerebellar tonsils are normal in position. DIFFUSION IMAGING: No focal areas of restricted diffusion are seen. No evidence of acute infarction. EXTRACRANIAL: The visualized portions of the orbits and paranasal sinuses are unremarkable. CONCLUSION: 1. Negative examination. Jadon Dan MD on November 08, 2016 at 14:59 Board Certified Radiologist. This report was verified electronically.
[2016-11-08 16:12] VITALS: BP 146/86; PULSE 80; RESP 16; TEMP 98.8; O2SAT 97
[2016-11-08] MEDS: MAGNESIUM HYDROXIDE SUSP 30 ML CUP PO PRN (18:08)
[2016-11-08 20:07] VITALS: BP 144/86; PULSE 87; RESP 16; TEMP 97.5; O2SAT 96
[2016-11-08] MEDS: MIRTAZAPINE 15 MG TAB PO SCH (20:55)
[2016-11-09 00:05] VITALS: BP 134/86; PULSE 87; RESP 17; TEMP 99.5; O2SAT 98
[2016-11-09] MEDS: MORPHINE SULFATE 30 MG/30 ML PCA IV SCH (00:32)
[2016-11-09] MEDS: DEXT 5%-NACL 0.45% 1000 ML INJ 1,000 ML IV SCH ×2 (01:41→09:43)
[2016-11-09 04:20] VITALS: BP 139/77; PULSE 95; RESP 18; TEMP 98.1; O2SAT 95
[2016-11-09] MEDS: PCA - TOTAL MG MORPHINE DELIVERED PER SHIFT SCH ×3 (05:47→20:16)
[2016-11-09 06:32] LABS: CREATINE KINASE 1719 U/L (39-308)
[2016-11-09 06:50] LABS: CKMB LESS THAN 0.5 NG/ML (0.5-3.6)
--- NOTE | 2016-11-09 07:54 | HHI.DS ---
Discharge Summary Admission Date Nov 07, 2016 at 15:28 Discharge Date: Nov 10, 2016 Admitting Diagnosis right proximal humeral fracture, dislocation (1) Right humeral fracture ICD Code: S42.301A Diagnosis: Principal (2) Seizure cerebral ICD Code: I67.89 Diagnosis: Principal Procedures S/P Right shoulder open repair of posterior fracture/dislocation by Dr Steven alonzo 11/08/16 Brief History - From Admission patient is a 36 y/o male, not a good historian, who apparently fell about two days ago,presented to ER with pain to the right shoulder. he doesn't remember how he fell. he's not sure if he had a seizure in the past . he was found to have right humeral fracture for which he underwent surgical repair. at the time of my evaluation he was resting comfortably with no acute distress with mild pain to the right upper extremity. CBC/BMP: 11/07/16 1517 11/08/16 0650 Significant Findings Laboratory Tests Test 11/07/16 11/08/16 11/09/16 15:17 06:50 05:01 Monocytes (%) (Auto) 10.1 % (0.0-8.0) Monocytes # (Auto) 1.0 TH/MM3 (0-0.9) Erythrocyte Sedimentation Rate 31 mm/hr (0-15) Activated Partial 30.8 SEC Thromboplast Time (24.3-30.1) Blood Urea Nitrogen 5 MG/DL (7-18) Total Creatine Kinase 3503 U/L 2737 U/L 1719 U/L (39-308) (39-308) (39-308) Valproic Acid (Depakene) Level 5 MCG/ML (50-100) Carbon Dioxide Level 34.6 MEQ/L (21.0-32.0) Anion Gap 4 MEQ/L (5-15) Estimat Glomerular Filtration 84 ML/MIN (>89) Rate Random Glucose 147 MG/DL (74-106) Ammonia 33 MCMOL/L (11-32) Albumin 3.0 GM/DL (3.4-5.0) Prolactin 1.9 ng/mL (4.0 - 15.2) Creatine Kinase MB LESS THAN 0.5 NG/ML (0.5-3.6) Imaging Last Impressions Brain MRI 11/08/16 0000 Signed Impressions: Service Date/Time: Tuesday, November 08, 2016 13:58 - CONCLUSION: 1. Negative examination. Jadon Dan MD Chest X-Ray 11/07/16 1506 Signed Impressions: Service Date/Time: Monday, November 07, 2016 15:14 - CONCLUSION: No acute disease. Bonifacio Avila MD Shoulder X-Ray 11/07/16 0950 Signed Impressions: Service Date/Time: Monday, November 07, 2016 10:13 - CONCLUSION: Comminuted proximal humeral fracture with avulsion fragments. Henry Martin MD Upper Extremity CT 11/07/16 0000 Signed Impressions: Service Date/Time: Monday, November 07, 2016 13:14 - CONCLUSION: 1. Impacted fracture of the proximal humeral head. This is described in detail above. Jadon Dan MD PE at Discharge GENERAL: 36-year-old male well nourished, well developed patient appears in not acute distress. SKIN: Warm and dry. HEAD: Normocephalic. EYES: No scleral icterus. No injection or drainage. NECK: Supple, trachea midline. No JVD or lymphadenopathy. CARDIOVASCULAR: Regular rate and rhythm without murmurs, gallops, or rubs. RESPIRATORY: Breath sounds equal bilaterally. No accessory muscle use. GASTROINTESTINAL: Abdomen soft, non-tender, nondistended. MUSCULOSKELETAL: Left shorter about in sling. No cyanosis, or edema. BACK: Nontender without obvious deformity. No CVA tenderness. Hospital Course Right humeral fracture after a fall- (Closed fracture dislocation of the right shoulder joint) S/P Right shoulder open repair of posterior fracture/dislocation by Dr Steven alonzo 11/08/16 Continue with pain control and PT/OT- management per ortho Possible seizure EEG and MRI brain pending. seizure precautions- continue with Depakote- neurology consult appreciated. Continue depakote at DC, to follow up as OP with neurology. Do not drive /swim until cleared by neurology Rhabdomyolysis- continue IV fluid and monitor the CPK level. CPK improving. Monitor also kidney function. Cont IVF. -bipolar disorder; resumed home meds -DVT prophylaxis; with SCD's Discussed Condition With the patient, nurse. Cleared medically and by ortho. To follow up as OP with PCP and consultants. Case management following for discharge. Pt Condition on Discharge: Stable Discharge Disposition: Discharge Home Discharge Time: <= 30 minutes Discharge Instructions DIET: Follow Instructions for: As Tolerated, No Restrictions Activities you can perform: Regular-No Restrictions Follow up Referrals: Neurology - 1 Week Orthopedics - 2 Weeks PCP Follow-up - 3-5 Days New Medications: Divalproex ER (Depakote ER) 500 Mg Nile 500 MG PO BID seizures #60 TAB Thiamine (Vitamin B-1) 100 Mg Tab 100 MG PO DAILY MVT #30 TAB Continued Medications: Hydrocodone-Acetaminophen ([place]) 5-325 mg Tab 1 TAB PO TID PRN PAIN #15 Ref 0 TAB (This prescription has been renewed) Mirtazapine (Mirtazapine) 30 Mg Tab 30 MG PO HS Depression Control #0 Ref 0 TAB Quetiapine XR (Seroquel XR) 150 Mg Tab 150 MG PO DAILY #0 Ref 0 TAB Isabelle Prince MD Nov 09, 2016 07:54
[2016-11-09 08:00] VITALS: BP 124/78; PULSE 87; RESP 16; TEMP 99; O2SAT 96
--- NOTE | 2016-11-09 09:05 | MG ---
cc: BRIGETTE MCKEE M.D. Lab No: [id number] Date: 11/09/2016 Age: 36 Sex: M Race: __ DATE OF [address] Mcdermott TECHNIQUE In room 1617 with photic stimulation. Awake, drowsy, asleep study. MRI report is negative. INDICATIONS This is a 36-year-old man found on the floor conscious after a fall, possible seizure, right shoulder fracture. History of epilepsy, depression, anxiety, bipolar disorder, schizophrenia, alcohol, tobacco, substance abuse with cocaine. MEDICATIONS 1. Morphine 2. Os-Skyler 3. Theragran 4. Folate 5. Cephazolin 6. Dextrose 7. Seroquel 8. Depakote DESCRIPTION OF RECORD Overall background is between 4-5 Hz, 20-40 microvolts. Quite a bit of movement from the patient. There is some myogenic artifact, but no discernible epileptic activity. Photic stimulation elicits a driving response. IMPRESSION Mild to moderate slowing seen without any epileptiform features consistent with a encephalopathic process. MD JOYA Johnson/AMY /8:45 AM /9:00 AM
[2016-11-09] MEDS: oxyCODONE/ACETAMINOPHEN 5 MG/325 MG TAB PO PRN ×3 (09:53→20:16)
[2016-11-09] MEDS: DOCUSATE SODIUM 100 MG CAP PO SCH ×2 (09:54→20:15)
[2016-11-09] MEDS: QUEtiapine FUMARATE 25 MG TAB PO SCH ×2 (09:54→20:15)
[2016-11-09] MEDS: FOLIC ACID 1 MG TAB PO SCH (09:54)
[2016-11-09] MEDS: MULTIVITAMINS/MINERALS THERAPEUTIC TAB PO SCH (09:54)
[2016-11-09] MEDS: THIAMINE HCL 100 MG TAB PO SCH (09:54)
[2016-11-09] MEDS: DIVALPROEX SODIUM E.R. 500 MG TAB PO SCH ×2 (09:55→20:15)
[2016-11-09] MEDS: CALCIUM/VITAMIN D 250 MG/125 U TAB PO SCH ×3 (09:55→15:40)
[2016-11-09] MEDS: SODIUM CHLORIDE 0.9% FLUSH 10 ML FLUSH IV FLUSH SCH ×2 (09:55→20:16)
[2016-11-09] MEDS: MAGNESIUM HYDROXIDE SUSP 30 ML CUP PO PRN (09:55)
--- NOTE | 2016-11-09 11:21 | PD.ORT.PN ---
Subjective Subjective Remarks Patient comfortable. Pain controlled. NAD. Objective Vitals Vital Signs Date Time Temp Pulse Resp B/P Pulse Ox O2 Delivery O2 Flow Rate FiO2 11/09/16 08:00 99.0 87 16 124/78 96 11/09/16 05:47 16 11/09/16 04:20 98.1 95 18 139/77 95 11/09/16 00:32 16 11/09/16 00:05 99.5 87 17 134/86 98 11/08/16 20:07 97.5 87 16 144/86 96 11/08/16 18:58 Room Air 11/08/16 16:12 98.8 80 16 146/86 97 11/08/16 11:46 98.7 80 17 151/90 97 I/O 11/08/16 11/08/16 11/08/16 11/09/16 11/09/16 11/09/16 07:00 15:00 23:00 07:00 15:00 23:00 Intake Total 1086 ml 537 ml 480 ml 685 ml Output Total 2150 ml 300 ml 600 ml 950 ml Balance -1064 ml 237 ml -120 ml -265 ml Intake Oral 480 ml 240 ml 480 ml 480 ml IV Total 606 ml 297 ml 205 ml Output Urine Total 2150 ml 300 ml 600 ml 950 ml # Voids 1 # Bowel Movements 0 0 0 0 Result Diagram: 11/07/16 1517 11/08/16 0650 Imaging Last 24 hours Impressions Chest X-Ray 11/07/16 1506 Signed Impressions: Service Date/Time: Monday, November 07, 2016 15:14 - CONCLUSION: No acute disease. Bonifacio Avila MD Shoulder X-Ray 11/07/16 0950 Signed Impressions: Service Date/Time: Monday, November 07, 2016 10:13 - CONCLUSION: Comminuted proximal humeral fracture with avulsion fragments. Henry Martin MD Procedures Right shoulder open repair of posterior fracture/dislocation Objective Remarks Right shoulder dressing in place C/D/I abduction pillow in place +sensation 2+ radial pulses good movement of digits Assessment & Plan Ortho Post Op Day #: 2 Problem List: (1) Closed fracture dislocation of right shoulder joint Assessment and Plan POD #2 Right shoulder open repair of posterior fracture/dislocation Pain management - Percocet Order for gun-slinger brace, in neutral position, to be worn at all times for 8 weeks Physical therapy - gait training only. No therapy to right shoulder. Continue standard meds Orthopedically stable for discharge. Will need gun-slinger brace applied before discharge. D/C planning - anticipating home F/U in [address] Gentile or PIPE in office. Johnny Araiza Nov 09, 2016 11:21
[2016-11-09 12:00] VITALS: BP 121/71; PULSE 85; RESP 20; TEMP 98.3; O2SAT 96
--- NOTE | 2016-11-09 13:59 | HHI.PR ---
Subjective Remarks The patient was seen health sanitarian. He is in bed, appears in not acute distress. Says he is pain is controlled by medications. No nausea, vomiting, diarrhea or constipation. No fever or chills overnight. No seizures. Plan to discharge home when arrangements done, patient needs sleeping for right arm. Case management is following. Objective Vitals Vital Signs Date Time Temp Pulse Resp B/P Pulse Ox O2 Delivery O2 Flow Rate FiO2 11/09/16 12:00 98.3 85 20 121/71 96 11/09/16 08:00 99.0 87 16 124/78 96 11/09/16 05:47 16 11/09/16 04:20 98.1 95 18 139/77 95 11/09/16 00:32 16 11/09/16 00:05 99.5 87 17 134/86 98 11/08/16 20:07 97.5 87 16 144/86 96 11/08/16 18:58 Room Air 11/08/16 16:12 98.8 80 16 146/86 97 I/O 11/08/16 11/08/16 11/08/16 11/09/16 11/09/16 11/09/16 07:00 15:00 23:00 07:00 15:00 23:00 Intake Total 1086 ml 537 ml 480 ml 685 ml Output Total 2150 ml 300 ml 600 ml 950 ml Balance -1064 ml 237 ml -120 ml -265 ml Intake Oral 480 ml 240 ml 480 ml 480 ml IV Total 606 ml 297 ml 205 ml Output Urine Total 2150 ml 300 ml 600 ml 950 ml # Voids 1 # Bowel Movements 0 0 0 0 Result Diagram: 11/07/16 1517 11/08/16 0650 Imaging Last Impressions Brain MRI 11/08/16 0000 Signed Impressions: Service Date/Time: Tuesday, November 08, 2016 13:58 - CONCLUSION: 1. Negative examination. Jadon Dan MD Chest X-Ray 11/07/16 1506 Signed Impressions: Service Date/Time: Monday, November 07, 2016 15:14 - CONCLUSION: No acute disease. Bonifacio Avila MD Shoulder X-Ray 11/07/16 0950 Signed Impressions: Service Date/Time: Monday, November 07, 2016 10:13 - CONCLUSION: Comminuted proximal humeral fracture with avulsion fragments. Henry Martin MD Upper Extremity CT 11/07/16 0000 Signed Impressions: Service Date/Time: Monday, November 07, 2016 13:14 - CONCLUSION: 1. Impacted fracture of the proximal humeral head. This is described in detail above. Jadon Dan MD Objective Remarks GENERAL: 36-year-old male well nourished, well developed patient appears in not acute distress. SKIN: Warm and dry. HEAD: Normocephalic. EYES: No scleral icterus. No injection or drainage. NECK: Supple, trachea midline. No JVD or lymphadenopathy. CARDIOVASCULAR: Regular rate and rhythm without murmurs, gallops, or rubs. RESPIRATORY: Breath sounds equal bilaterally. No accessory muscle use. GASTROINTESTINAL: Abdomen soft, non-tender, nondistended. MUSCULOSKELETAL: Left shorter about in sling. No cyanosis, or edema. BACK: Nontender without obvious deformity. No CVA tenderness. Procedures S/P Right shoulder open repair of posterior fracture/dislocation by Dr Steven alonzo 11/08/16 A/P Problem List: (1) Right humeral fracture ICD Code: S42.301A Status: Acute (2) Seizure cerebral ICD Code: I67.89 Status: Acute Assessment and Plan Right humeral fracture after a fall- (Closed fracture dislocation of the right shoulder joint) S/P Right shoulder open repair of posterior fracture/dislocation by Dr Steven alonzo 11/08/16 Continue with pain control and PT/OT- management per ortho Possible seizure EEG and MRI brain pending. seizure precautions- continue with Depakote- neurology consult appreciated. Rhabdomyolysis- continue IV fluid and monitor the CPK level. CPK improving. Monitor also kidney function. Cont IVF. -bipolar disorder; resumed home meds -DVT prophylaxis; with SCD's Discussed Condition With the patient, nurse. Discharge when arrangements done. Failure medically and by dorsal. Case management following for discharge. Problem Qualifiers (1) Right humeral fracture: Qualified Code: S42.294D - Other closed nondisplaced fracture of proximal end of right humerus with routine healing, subsequent encounter Isabelle Prince MD Nov 09, 2016 13:59
[2016-11-09 17:00] VITALS: BP 117/68; PULSE 81; RESP 20; TEMP 98.5; O2SAT 94
[2016-11-09 20:00] VITALS: BP 113/70; PULSE 88; RESP 19; TEMP 98.4; O2SAT 95
[2016-11-09] MEDS: MIRTAZAPINE 15 MG TAB PO SCH (20:16)
[2016-11-10] VITALS: BP 136/77; PULSE 98; RESP 18; TEMP 96.5; O2SAT 98
[2016-11-10] MEDS: oxyCODONE/ACETAMINOPHEN 5 MG/325 MG TAB PO PRN ×3 (01:27→15:25)
[2016-11-10 04:00] VITALS: BP 114/67; PULSE 77; RESP 16; TEMP 96; O2SAT 96
[2016-11-10 05:52] LABS: CREATINE KINASE 1267 U/L (39-308)
[2016-11-10] MEDS: PCA - TOTAL MG MORPHINE DELIVERED PER SHIFT SCH ×2 (06:00→08:08)
[2016-11-10 06:13] LABS: CKMB LESS THAN 0.5 NG/ML (0.5-3.6)
[2016-11-10] MEDS: DEXT 5%-NACL 0.45% 1000 ML INJ 1,000 ML IV SCH ×2 (08:08)
[2016-11-10] MEDS: MULTIVITAMINS/MINERALS THERAPEUTIC TAB PO SCH (08:16)
[2016-11-10] MEDS: DOCUSATE SODIUM 100 MG CAP PO SCH (08:16)
[2016-11-10] MEDS: THIAMINE HCL 100 MG TAB PO SCH (08:16)
[2016-11-10] MEDS: CALCIUM/VITAMIN D 250 MG/125 U TAB PO SCH ×2 (08:16→12:48)
[2016-11-10] MEDS: DIVALPROEX SODIUM E.R. 500 MG TAB PO SCH (08:16)
[2016-11-10] MEDS: QUEtiapine FUMARATE 25 MG TAB PO SCH (08:17)
[2016-11-10] MEDS: FOLIC ACID 1 MG TAB PO SCH (08:17)
[2016-11-10] MEDS: SODIUM CHLORIDE 0.9% FLUSH 10 ML FLUSH IV FLUSH SCH (08:20)
[2016-11-10 10:55] VITALS: BP 131/74; PULSE 77; RESP 20; TEMP 97.9; O2SAT 96
[2016-11-10 12:00] VITALS: BP 125/71; PULSE 78; RESP 16; TEMP 96.5; O2SAT 99
[2016-11-10] MEDS ORDERED: SIMETHICONE 80 MG CHEWABLE TAB CHEW PRN (14:15)
--- NOTE | 2016-11-10 14:15 | HHI.PR ---
Subjective Remarks Seen earlier, complaints of gas, would like meds. Pain is controlled by meds. Awaiting sling from tech / Otherwise no complaints. No fever or chills. Pain is controlled by meds. Objective Vitals Vital Signs Date Time Temp Pulse Resp B/P Pulse Ox O2 Delivery O2 Flow Rate FiO2 11/10/16 10:55 97.9 77 20 131/74 96 11/10/16 08:59 Room Air 11/10/16 04:00 96.0 77 16 114/67 96 11/10/16 00:00 96.5 98 18 136/77 98 11/09/16 20:00 98.4 88 19 113/70 95 11/09/16 19:02 Room Air 11/09/16 17:00 98.5 81 20 117/68 94 11/09/16 16:51 16 I/O 11/09/16 11/09/16 11/09/16 11/10/16 11/10/16 11/10/16 07:00 15:00 23:00 07:00 15:00 23:00 Intake Total 685 ml 480 ml 240 ml 720 ml Output Total 950 ml 250 ml Balance -265 ml 480 ml -10 ml 720 ml Intake Oral 480 ml 480 ml 240 ml 720 ml IV Total 205 ml Output Urine Total 950 ml 250 ml # Voids 2 3 # Bowel Movements 0 1 1 0 Result Diagram: 11/07/16 1517 11/08/16 0650 Objective Remarks GENERAL: 36-year-old male well nourished, well developed patient appears in not acute distress. SKIN: Warm and dry. HEAD: Normocephalic. EYES: No scleral icterus. No injection or drainage. NECK: Supple, trachea midline. No JVD or lymphadenopathy. CARDIOVASCULAR: Regular rate and rhythm without murmurs, gallops, or rubs. RESPIRATORY: Breath sounds equal bilaterally. No accessory muscle use. GASTROINTESTINAL: Abdomen soft, non-tender, nondistended. MUSCULOSKELETAL: Left shorter about in sling. No cyanosis, or edema. BACK: Nontender without obvious deformity. No CVA tenderness. Procedures S/P Right shoulder open repair of posterior fracture/dislocation by Dr Steven alonzo 11/08/16 A/P Problem List: (1) Right humeral fracture ICD Code: S42.301A Status: Acute (2) Seizure cerebral ICD Code: I67.89 Status: Acute Assessment and Plan Right humeral fracture after a fall- (Closed fracture dislocation of the right shoulder joint) S/P Right shoulder open repair of posterior fracture/dislocation by Dr Steven alonzo 11/08/16 Continue with pain control and PT/OT- management per ortho Possible seizure EEG and MRI brain pending. seizure precautions- continue with Depakote- neurology consult appreciated. Rhabdomyolysis- continue IV fluid and monitor the CPK level. CPK improving. Monitor also kidney function. Cont IVF. -bipolar disorder; resumed home meds -DVT prophylaxis; with SCD's Discussed Condition With the patient, nurse. Discharge when arrangements done. Failure medically and by dorsal. Case management following for discharge. Problem Qualifiers (1) Right humeral fracture: Qualified Code: S42.294D - Other closed nondisplaced fracture of proximal end of right humerus with routine healing, subsequent encounter Isabelle Prince MD Nov 10, 2016 14:15
--- NOTE | 2016-11-14 08:16 | MP ---
cc: HANNAH ARELLNAO M.D. DATE OF SURGERY: 11/07/2016 PREOPERATIVE DIAGNOSIS: Right shoulder posterior fracture dislocation secondary to seizure. POSTOPERATIVE DIAGNOSIS: Right shoulder posterior fracture dislocation secondary to seizure. PROCEDURE: Right shoulder open repair of an intraarticular fracture dislocation using Synthes shaft screws and 4.0 cancellous screw. SURGEON: Hannah Arellano M.D. LIVE AMMUNITION INSPECTOR SURGEON: PIPE Fang. ANESTHETIC: General. ESTIMATED BLOOD LOSS: 150 cc. COMPLICATIONS: None known. INDICATIONS FOR THE PROCEDURE: Corbin Edmondson is a 36-year-old male who sustained a severe injury to his right shoulder several days ago. He was seen at an outside facility where he was told he could have orthopedic followup. He was in continued severe pain, therefore, he presented to [facility] for treatment. X-rays revealed a fracture and dislocation of the shoulder. CT scan was used to further understand this severe injury. The CT scan further delineated the multiple and severe injuries including the comminuted fracture, the posterior dislocation and the Reverse Hill-Sachs lesion that ultimately may require a shoulder replacement or hemiarthroplasty. There is a significant risk for the particular injury pattern of repeat dislocation and failure of the internal fixation and significant risk for avascular necrosis and need for surgical intervention. All this was discussed with the patient and risks, benefits were thoroughly discussed including the discussion risk of infection, nerve damage, blood vessel damage, bleeding, blood loss, failure of the internal fixation, repeat dislocation, need for repeat surgical intervention. He understands that this is a devastating injury that he has and that there is significant risks that are taken upon performing this complex surgical intervention. A detailed informed consent was obtained. No guarantees were offered. DESCRIPTION OF THE PROCEDURE IN DETAIL: The patient was brought to the operating room and placed under general anesthetic. The right upper extremity was draped and prepped in the usual sterile fashion. It should be noted that geriatric assistant, Johnny Araiza, is an advanced registered nurse practitioner who subspecializes in orthopedic surgery. His skill set was medically necessary for the performance of the operation. Additionally, a second clinical services assistant was used and a emergency response technician was used. We proceeded with a giving the patient IV antibiotics and then completing a time out, then preceding with an anterior approach to the shoulder mobilizing the cephalic vein medially and traversing the deltopectoral interval. The shoulder was dislocated posteriorly. We made a small window in the rotator interval just above the subscapularis where there was a thin layer of tissue that was pushing outward with the bloody effusion on the shoulder. We opened this window and then suctioned out the shoulder joint and pulled out several small fragments of bone. The large posterior articular fracture involved the majority of the articular surface and was posteriorly dislocated. We irrigated out the shoulder with copious amounts of irrigation. We came around the deltoid and palpated the fracture and with digital manipulation we moved the fracture fragment into a better position and then proximally we used a large fracture tenaculum to pull the bone and clamp it into very close to anatomic position. This manipulation was repeated multiple times until we were satisfied with the overall positioning. We then proceeded with slightly inferior angulated lag screws and used shaft screw lag technique with my finger posteriorly on the fracture fragment such that the drill bit came through at a slight angle and it would pull the fracture in to improved alignment. We proceeded with the first screw and as we tightened this screw, we loosened the clamp and adjusted it and we could see the lateral base fracture line compressing and it appeared to be very close to anatomic. We did use a countersink and we used a total of four screws like this and one long fully threaded cortical screw and this we used a washer and it was slightly compressed. We felt that the screw was slightly long on the x-ray and it had compressed the fracture site nicely and squeezed it that we were able to go down to a shorter screw. We directly looked into the shoulder joint and thoroughly irrigated this out with copious amounts irrigation. The stability of the shoulder now looked very good and we obtained hard copy or fluoroscopic x-rays for the packs, a true AP of the glenohumeral joint, a 45 degree internal, a 45 degree external and a 90 degree external rotation. At this point, we had very good hemostasis. We irrigated out with copious amounts of irrigation and proceeded to close with absorbable sutures, a subcuticular on the skin and then nathen on the skin. Xeroform applied. Sterile dressing applied. The patient was awakened and returned to the recovery room in stable condition. MD NATALIA Holder/RADHA /9:23 PM /8:09 AM
[2016-12-28] MEDS ORDERED: BUSP5TAB PO (11:57)
[2016-12-28] MEDS ORDERED: ARIP1TAB11 PO (11:57)
[2016-12-28] MEDS ORDERED: PRENTAB44 (11:59)
[2017-01-10] MEDS ORDERED: TYLETAB34 PO (13:16)
== END 2016-11-10 16:45 | disposition home or self-care (01) | DRG 493 ==
LOC: NETRI 09:15 → NEDA 15:28 → N06B 17:33
PROVIDERS: ADMIT Hospitalist; ATTEND Hospitalist
PROC: 0PSC04Z Reposition Right Humeral Head with Internal Fixation Device, Open Approach (ICD-10-PCS; principal; 2016-11-10)
DX: S42.291A Other displaced fracture of upper end of right humerus, initial encounter for closed fracture (principal); M62.82 Rhabdomyolysis; F25.9 Schizoaffective disorder, unspecified; F31.9 Bipolar disorder, unspecified; G40.909 Epilepsy, unspecified, not intractable, without status epilepticus; Z72.0 Tobacco use; W19.XXXA Unspecified fall, initial encounter; Y92.019 Unspecified place in single-family (private) house as the place of occurrence of the external cause
CPT/HCPCS: 70551; 71010; 73030; 73200; 76000; 80048; 80053; 80164; 82140; 82550; 82552; 82607; 83735; 84146; 84443; 85025; 85610; 85652; 85730; 94150; 95819; 96374; A4566; J0131; J0690; J1100; J1580; J2175; J2250; J2270; J2370; J2405; J2710; J3010; J7030; J7120

== ENCOUNTER 2017-01-24 15:29 | Emergency (ER) | payer MEDICARE, OTHER ==
[~2017-01-24 15:29] MED LIST changes: +ARIP1TAB11 PO; +BUSP5TAB PO; +MIRT30TA PO; -QUET50TA PO; +TYLETAB34 PO
[2017-01-24 16:03] VITALS: BP 132/83; PULSE 77; RESP 16; TEMP 97.9; O2SAT 95
[2017-01-24] MEDS ORDERED: ARIP1TAB5 PO (16:38)
[2017-01-24 17:22] VITALS: BP 134/87; PULSE 76; RESP 18; O2SAT 99
[2017-01-24 17:44] LABS: AUTOMATED NEUTROPHIL # 2.5 TH/MM3 (1.8-7.7); BASOPHIL # 0.1 TH/MM3 (0-0.2); EOSINOPHIL # 0.6 TH/MM3 (0-0.4); EOSINOPHIL % 8.8 % (0.0-4.0); HEMATOCRIT 43.7 % (39.0-51.0); HEMO FLAGS DIFF FINAL; LYMPH % 43.5 % (9.0-44.0); MEAN CELL VOLUME 88.3 FL (80.0-100.0); MEAN CORPUSCULAR HEMOGLOBIN 29.2 PG (27.0-34.0); MONO % 10.7 % (0.0-8.0); PLATELET COUNT 167 TH/MM3 (150-450); RED BLOOD COUNT 4.94 MIL/MM3 (4.50-5.90); RED CELL DISTRIBUTION WIDTH 14.3 % (11.6-17.2); WHITE BLOOD COUNT 6.8 TH/MM3 (4.0-11.0)
--- NOTE | 2017-01-24 17:59 | PD ---
HPI Chief Complaint: Psychiatric Symptoms Time Seen by Provider: 17:45 Travel History International Travel<30 days: No Contact w/Intl Traveler<30days: No Traveled to known affect area: No History of Present Illness HPI 36-year-old male presents under Rosado act initiated by the physician. According to the Rosado act form, "mildly agitated, slightly confused. Active suicidal thoughts." He reportedly has a history of schizoaffective disorder. He reports that over the past few days he's been having passive suicidal thoughts. He has no purposeful plan. He denies any homicidal ideation, drug or alcohol use, auditory or visual hallucination. He does report previous suicide attempts when he was in his 20s. He has no medical complaints at this time. PFS Past Medical History Bipolar Disorder: Yes Anxiety: Yes Depression: Yes Cancer: No Cardiovascular Problems: No Diabetes: No Diminished Hearing: No Endocrine: No Genitourinary: No Headaches: No Hypertension: Yes Immune Disorder: No Musculoskeletal: No Neurologic: No Psychiatric: Yes Reproductive: No Respiratory: No Immunizations Current: Yes Schizophrenia: Yes Seizures: Yes Past Surgical History Abdominal Surgery: Yes (hernia) Other Surgery: Yes ( hernia repair) Social History Alcohol Use: Yes (OCCASIONAL) Tobacco Use: Yes (1 CIG/DAILY) Substance Use: No Allergies-Medications (Allergen,Severity, Reaction): Coded Allergies: Shrimp (Verified Allergy, Severe, Nausea/Vomiting, 01/24/17) Reported Meds & Prescriptions Reported Meds & Active Scripts Active Tylenol-Codeine #3 (Acetaminophen-Codeine) 300-30 mg Tab 1 Tab PO Q6HR PRN Reported Abilify (Aripiprazole) 10 Mg Tab 10 Mg PO DAILY Buspirone (Buspirone HCl) 5 Mg Tab 5 Mg PO BID Aripiprazole 5 Mg Tab 5 Mg PO DAILY Mirtazapine 30 Mg Tab 30 Mg PO HS Review of Systems Except as stated in HPI: all other systems reviewed are Neg Physical Exam Narrative GENERAL: Pleasant well-developed well-nourished male resting comfortably on hospital bed. SKIN: Warm and dry. HEAD: Atraumatic. Normocephalic. EYES: Pupils equal and round. No scleral icterus. No injection or drainage. ENT: No nasal bleeding or discharge. Mucous membranes pink and moist. NECK: Trachea midline. No JVD. CARDIOVASCULAR: Regular rate and rhythm. No murmur appreciated. RESPIRATORY: No accessory muscle use. Clear to auscultation. Breath sounds equal bilaterally. GASTROINTESTINAL: Abdomen soft, non-tender, nondistended. Hepatic and splenic margins not palpable. MUSCULOSKELETAL: No obvious deformities. No edema. NEUROLOGICAL: Awake and alert. No obvious cranial nerve deficits. Motor grossly within normal limits. Normal speech. PSYCHIATRIC: Appropriate mood and affect; insight and judgment normal. Data Data Last Documented VS Vital Signs Date Time Temp Pulse Resp B/P Pulse Ox O2 Delivery O2 Flow Rate FiO2 01/24/17 17:22 76 18 134/87 99 01/24/17 16:03 97.9 Orders Complete Blood Count With Diff (01/24/17 17:02) Comprehensive Metabolic Panel (01/24/17 17:02) Psych Screen (01/24/17 17:02) Drug Screen, Random Urine (01/24/17 17:02) Alcohol (Ethanol) (01/24/17 17:02) Diet Regular Basic (01/24/17 Dinner) Labs Laboratory Tests Test 01/24/17 17:28 White Blood Count 6.8 TH/MM3 Red Blood Count 4.94 MIL/MM3 Hemoglobin 14.4 GM/DL Hematocrit 43.7 % Mean Corpuscular Volume 88.3 FL Mean Corpuscular Hemoglobin 29.2 PG Mean Corpuscular Hemoglobin 33.0 % Concent Red Cell Distribution Width 14.3 % Platelet Count 167 TH/MM3 Mean Platelet Volume 10.3 FL Neutrophils (%) (Auto) 36.0 % Lymphocytes (%) (Auto) 43.5 % Monocytes (%) (Auto) 10.7 % Eosinophils (%) (Auto) 8.8 % Basophils (%) (Auto) 1.0 % Neutrophils # (Auto) 2.5 TH/MM3 Lymphocytes # (Auto) 3.0 TH/MM3 Monocytes # (Auto) 0.7 TH/MM3 Eosinophils # (Auto) 0.6 TH/MM3 Basophils # (Auto) 0.1 TH/MM3 CBC Comment DIFF FINAL Differential Comment Sodium Level 144 MEQ/L Potassium Level 4.3 MEQ/L Chloride Level 107 MEQ/L Carbon Dioxide Level 34.3 MEQ/L Anion Gap 3 MEQ/L Blood Urea Nitrogen 8 MG/DL Creatinine 1.14 MG/DL Estimat Glomerular Filtration 89 ML/MIN Rate Random Glucose 84 MG/DL Calcium Level 8.9 MG/DL Total Bilirubin 0.2 MG/DL Aspartate Amino Transf 19 U/L (AST/SGOT) Alanine Aminotransferase 37 U/L (ALT/SGPT) Alkaline Phosphatase 142 U/L Total Protein 7.4 GM/DL Albumin 3.5 GM/DL Ethyl Alcohol Level LESS THAN 3 MG/DL MDM Medical Decision Making Medical Screen Exam Complete: Yes Emergency Medical Condition: Yes Medical Record Reviewed: Yes Differential Diagnosis Major depressive disorder, depressive disorder not otherwise specified, acute psychosis, substance induced mood disorder, adjustment reaction Narrative Course 36-year-old male presents under a Rosado act for evaluation of suicidal ideation. Mental health screening discussed with the patient. Psychiatric screen ordered. Lab work is unremarkable. This patient is medically cleared for psychiatric disposition. Diagnosis Primary Impression: Suicidal ideation Oli Landaverde Jan 24, 2017 17:59
[2017-01-24 18:06] LABS: ALT (GPT) 37 U/L (12-78); ANION GAP 3 MEQ/L (5-15); AST (GOT) 19 U/L (15-37); BICARBONATE 34.3 MEQ/L (21.0-32.0); BLOOD UREA NITROGEN 8 MG/DL (7-18); CHLORIDE 107 MEQ/L (98-107); GLOMERULAR FILTRATION RATE 89 ML/MIN (>89); POTASSIUM 4.3 MEQ/L (3.5-5.1); SODIUM (NA) 144 MEQ/L (136-145)
[2017-01-24 18:08] LABS: ALKALINE PHOSPHATASE 142 U/L (45-117); TOTAL BILIRUBIN ADULT 0.2 MG/DL (0.2-1.0)
[2017-01-24 21:19] LABS: BARBITURATES, URINE NEG (NEG); COCAINE, URINE NEG (NEG)
[2017-01-24 21:29] LABS: AMPHETAMINE, URINE NEG (NEG)
[2017-01-24 22:00] VITALS: BP 132/85; PULSE 91; RESP 18; O2SAT 97
[2017-01-25 02:00] VITALS: BP 142/85; PULSE 66; RESP 17; O2SAT 99
[2017-01-25 06:19] VITALS: BP 125/76; PULSE 67; RESP 19; O2SAT 99
--- NOTE | 2017-01-25 10:35 | PD ---
History of Present Illness Chief Complaint: Psychiatric Symptoms Time Seen by Provider: 10:30 Travel History International Travel<30 Days: No Contact w/Intl Traveler<30days: No Known affected area: No Legal Status Legal Status: Rosado Act Rosado Act Signed By: RACHEL MENA MD [phone] Rosado Act Comment: OFFICER RAJESH History of Present Illness: This is a 36-year-old male with a history of schizoaffective disorder, presenting last evening with suicidal thoughts. Apparently he was agitated last evening and describes several days of suicidal thoughts, even though there was not a clear reason as to why he felt that way. This morning he is much more calm and appropriate. He denies being suicidal and he is verbally chucky for safety. In fact, he denies any suicidal or homicidal ideation, plan or intention and he would like to return home. He is living with his godmother at this time. He has his medicines, including Abilify, at home. He states he has been compliant with the medicine and does not need a prescription. [facility] and is willing to go there as a walk-in. He admits to an underlying suspiciousness of healthcare providers which this physician believes is paranoid. However, he is cooperative with a good plan to care for himself and denies any plan to harm self or others. No illicit drug use or alcohol use. PFSH Past Medical History Bipolar Disorder: Yes Anxiety: Yes Depression: Yes Cancer: No Cardiovascular Problems: No Diabetes: No Diminished Hearing: No Endocrine: No Genitourinary: No Headaches: No Hypertension: Yes Immune Disorder: No Musculoskeletal: No Neurologic: No Psychiatric: Yes Reproductive: No Respiratory: No Immunizations Current: Yes Schizophrenia: Yes Seizures: Yes Past Surgical History Abdominal Surgery: Yes (hernia) Other Surgery: Yes ( hernia repair) Psychiatric History Psychiatric History Hx Psychiatric Treatment: INPATIENT AT [facility]. Patient willing to walk in to [facility] clinic for evaluation History of Inpatient Treatment: Yes Social History Hx Alcohol Use: Yes (OCCASIONAL) Hx Tobacco Use: Yes (1 CIG/DAILY) Hx Substance Use: No Substance Use Type: Alcohol, Marijuana, Cocaine Hx of Substance Use Treatment: No Allergies-Medications (Allergen,Severity, Reaction): Coded Allergies: Shrimp (Verified Allergy, Severe, Nausea/Vomiting, 01/24/17) Reported Meds & Prescriptions Reported Meds & Active Scripts Active Tylenol-Codeine #3 (Acetaminophen-Codeine) 300-30 mg Tab 1 Tab PO Q6HR PRN Reported Abilify (Aripiprazole) 10 Mg Tab 10 Mg PO DAILY Buspirone (Buspirone HCl) 5 Mg Tab 5 Mg PO BID Aripiprazole 5 Mg Tab 5 Mg PO DAILY Mirtazapine 30 Mg Tab 30 Mg PO HS Review of Systems Except as stated in HPI: all other systems reviewed are Neg Exam Alert: Yes [place]: Person, Place, Date, Situation Mood: Calm Affect: Appropriate Speech: Clear, Logical Eye Contact: Normal Memory Intact: Immediate, Recent, Remote Delusions: Yes Delusion Type: Paranoid Insight/Judgement Adequate MDM Medical Decision Making Medical Record Reviewed: Yes Assessment/Plan This is a 36-year-old male with a history of schizoaffective disorder, previous psychiatric hospitalizations, currently living with his godmother. Patient expressed suicidal thinking for the last several days but apparently is feeling better this morning despite an underlying paranoia. His paranoia is felt to be baseline according to his report. He is verbally chucky for safety and denies any suicidal or homicidal ideation, plan or intent. He has medications and a place to stay. He can also seek treatment at [facility] which she is willing to do. Therefore, despite the risk of discharging him, least restrictive alternative applies and his Rosado act will be lifted. Orders Complete Blood Count With Diff (01/24/17 17:02) Comprehensive Metabolic Panel (01/24/17 17:02) Psych Screen (01/24/17 17:02) Drug Screen, Random Urine (01/24/17 17:02) Alcohol (Ethanol) (01/24/17 17:02) Diet Regular Basic (01/24/17 Dinner) Diet Regular Basic (01/25/17 Breakfast) Diet Regular Basic (01/25/17 Lunch) Results Vital Signs Date Time Temp Pulse Resp B/P Pulse Ox O2 Delivery O2 Flow Rate FiO2 01/25/17 06:19 67 19 125/76 99 Room Air 01/25/17 02:00 66 17 142/85 99 Room Air 01/24/17 22:00 91 18 132/85 97 Room Air 01/24/17 17:22 76 18 134/87 99 01/24/17 16:35 18 01/24/17 16:03 97.9 77 16 132/83 95 Laboratory Tests Test 01/24/17 01/24/17 17:28 20:44 White Blood Count 6.8 Red Blood Count 4.94 Hemoglobin 14.4 Hematocrit 43.7 Mean Corpuscular Volume 88.3 Mean Corpuscular Hemoglobin 29.2 Mean Corpuscular Hemoglobin 33.0 Concent Red Cell Distribution Width 14.3 Platelet Count 167 Mean Platelet Volume 10.3 Neutrophils (%) (Auto) 36.0 Lymphocytes (%) (Auto) 43.5 Monocytes (%) (Auto) 10.7 Eosinophils (%) (Auto) 8.8 Basophils (%) (Auto) 1.0 Neutrophils # (Auto) 2.5 Lymphocytes # (Auto) 3.0 Monocytes # (Auto) 0.7 Eosinophils # (Auto) 0.6 Basophils # (Auto) 0.1 CBC Comment DIFF FINAL Differential Comment Sodium Level 144 Potassium Level 4.3 Chloride Level 107 Carbon Dioxide Level 34.3 Anion Gap 3 Blood Urea Nitrogen 8 Creatinine 1.14 Estimat Glomerular Filtration 89 Rate Random Glucose 84 Calcium Level 8.9 Total Bilirubin 0.2 Aspartate Amino Transf 19 (AST/SGOT) Alanine Aminotransferase 37 (ALT/SGPT) Alkaline Phosphatase 142 Total Protein 7.4 Albumin 3.5 Ethyl Alcohol Level LESS THAN 3 Urine Opiates Screen NEG Urine Barbiturates Screen NEG Urine Amphetamines Screen NEG Urine Benzodiazepines Screen NEG Urine Cocaine Screen NEG Urine Cannabinoids Screen NEG Diagnosis Primary Impression: Schizoaffective disorder, depressive type Departure Forms: Tests/Procedures Patient Instructions: General Instructions, Schizoaffective Disorder (ED), Medical Clearance for Psychiatric Care (ED) Additional Instructions: DISCHARGE HOME DX. SCHIZOAFFECTIVE DISORDER FOLLOW-UP WITH PCP NEEDED RETURN TO ED FOR WORSTENING PROBLEMS Disposition: 01 DISCHARGE HOME Condition: Stable Frdey Phillips MD Jan 25, 2017 10:35
[2017-01-25 10:37] VITALS: BP 128/68; TEMP 98
== END 2017-01-25 10:43 | disposition home or self-care (01) ==
LOC: NEDAMB 15:29 → NEPJ 01-25 10:43
DX: F25.1 Schizoaffective disorder, depressive type (principal); F31.9 Bipolar disorder, unspecified; F41.9 Anxiety disorder, unspecified; I10 Essential (primary) hypertension; F17.210 Nicotine dependence, cigarettes, uncomplicated; Z79.899 Other long term (current) drug therapy
CPT/HCPCS: 80053; 80307; 85025; 99284

== ENCOUNTER 2018-02-19 10:41 | Observation (INO) ==
[2018-02-19] MEDS ORDERED: Sod Chloride 0.9% Inj 1,000 ML IV.CONT SCH ×2 (16:00→18:30)
--- NOTE | 2018-02-19 18:48 | P.HP ---
History of Present Illness Primary Care Physician: UNKNOWN History of Present Illness: 37-year-old black male being admitted for drug overdose. Patient was in his usual state of health until sometime this morning when his mother had taken in the [facility] for worsening depression and noted that he possibly had 2 empty bottles of Cocidin. Patient was sent over to the [facility] emergency department and evaluated there, initial blood work was unremarkable. He was transferred over to [facility] for further monitoring. Upon further questioning, the patient states that he does remember taking the medicines deliberately in an attempt to get "high". He denies being suicidal or trying to harm himself or harm others. He says the reason why he is doing this was because he has been suffering from an unchanged level of depression and was just trying to improve his mood. He says he does take prescribed medicines daily but says they do not help. Patient does recall feeling drowsy earlier in the morning. Now he is feeling much more awake and actually hungry. Denies any nausea vomiting diarrhea or abdominal pain. Denies any acute visual disturbances or headaches. EKG which was obtained which I independently reviewed shows normal sinus rhythm with no significant ST segment changes. Head CT was also negative as well as a chest x-ray. Patient does not know his family medical history well, says he never met his father. Says his mother when he was young. Social history entails that he lives with his godmother per the patient. Patient does endorse using cocaine for the purposes of getting high and improving his mood. Denies IV drug use. Denies history of sexual activity, denies any HIV or hepatitis diseases. Inpatient Certification: I certify that the inpatient services were ordered in accordance with Medicare regulations governing the order. This includes certification that hospital inpatient services are reasonable and necessary and in the case of services not specified as inpatient-only under 42 CFR 419.22(n), that they are appropriately provided as inpatient services in accordance to with the 2-midnight benchmark under 43 CFR 412.3(e) Review of Systems All other systems reviewed negative except as stated in HPI [facility] - History History Provided By: Patient - Medical History Medical History: Medical History (Last Reviewed 02/19/18 @ 11:16 by Laura Godinez MD) Bipolar affective disorder Depression History of fracture of right shoulder History of hypertension Schizoaffective disorder - Tobacco History Second Hand Smoke Exposure: Yes Tobacco Use In Past 30 Days: Yes Smoking Status: Former smoker Tobacco Type: Cigarettes - Alcohol History How Often Do You Have a Drink Containing Alcohol: 2 to 4 times a month - Substance Use History Substance History: Active Abuse - Substance Use Type Crack/Cocaine Status: Active Route Used: Inhalation Medications and Allergies Active Medications: Active Medications Sodium Chloride (Ns Inj) 1,000 mls @ 75 mls/hr IV.CONT .[id number] SHANE Allergies Allergy/AdvReac Type Severity Reaction Status Date / Time shrimp Allergy Severe Nausea/Vomi Verified 02/19/18 11:31 ting Home Medications Medication Instructions Recorded Confirmed Type Seroquel 02/19/18 History aripiprazole [Abilify Maintena] 0 IM QMONTH 02/19/18 History mirtazapine 02/19/18 History Exam Narrative: VS: afebrile GENERAL: Lying in bed, awake, alert, calm demeanor SKIN: Warm and dry. EYES: Pupils equal and round. No scleral icterus. No injection or drainage. ENT: No nasal bleeding or discharge. Mucous membranes pink and moist. CARDIOVASCULAR: Regular rate and rhythm. no murmurs RESPIRATORY: No accessory muscle use. Clear to auscultation. Breath sounds equal bilaterally. GASTROINTESTINAL: Abdomen soft, non-tender, nondistended. Hepatic and splenic margins not palpable. Extremities: No clubbing, cyanosis, or edema. No obvious deformities. MUSCULOSKELETAL: grossly intact ROM with 5/5 strength in upper and lower extremities proximally; adequate muscle bulk and tone for age and habitus NEUROLOGICAL: Awake and alert. No obvious cranial nerve deficits. No facial droop nor slurred speech noted. 2+ patellar reflexes bilaterally with intact sensation in the light touch over the lower extremities bilaterally uvula and tongue protrusion in midline. PSYCHIATRIC: Appropriate mood and affect; insight and judgment normal. Caprini VTE Risk Assessment Caprini VTE Risk Assessment: No/Low Risk (score <= 1) Caprini Risk Assessment Model: Point Value = 1 Point Value = 2 Point Value = 3 Point Value = 5 Age 41-60 Minor surgery BMI > 25 kg/m2 Swollen legs Varicose veins or History of unexplained or recurrent spontaneous Oral contraceptives or hormone replacement Sepsis (< 1 month) Serious lung disease, including pneumonia (< 1 month) Abnormal pulmonary function Acute myocardial infarction Congestive heart failure (< 1 month) History of inflammatory bowel disease Medical patient at bed rest Age 61-74 Arthroscopic surgery Major open surgery (> 45 min) Laparoscopic surgery (> 45 min) Malignancy Confined to bed (> 72 hours) Immobilizing plaster cast Central venous access Age >= 75 History of VTE Family history of VTE Factor V Leiden Prothrombin [id number] Lupus anticoagulant Anticardiolipin antibodies Elevated serum homocysteine Heparin-induced thrombocytopenia Other congenital or acquired thrombophilia Stroke (< 1 month) Elective arthroplasty Hip, pelvis, or leg fracture Acute spinal cord injury (< 1 month) Prophylaxis Regimen: Total Risk Factor Score Risk Level Prophylaxis Regimen 0-1 Low Early ambulation 2 Moderate Order ONE of the following: *Sequential Compression Device (SCD) *Heparin 5000 units SQ BID 3-4 Higher Order ONE of the following medications: *Heparin 5000 units SQ TID *Enoxaparin/Lovenox 40 mg SQ daily (WT < 150 kg, CrCl > 30 mL/min) *Enoxaparin/Lovenox 30 mg SQ daily (WT < 150 kg, CrCl > 10-29 mL/min) *Enoxaparin/Lovenox 30 mg SQ BID (WT < 150 kg, CrCl > 30 mL/min) AND/OR *Sequential Compression Device (SCD) 5 or more Highest Order ONE of the following medications: *Heparin 5000 units SQ TID (Preferred with Epidurals) *Enoxaparin/Lovenox 40 mg SQ daily (WT < 150 kg, CrCl > 30 mL/min) *Enoxaparin/Lovenox 30 mg SQ daily (WT < 150 kg, CrCl > 10-29 mL/min) *Enoxaparin/Lovenox 30 mg SQ BID (WT < 150 kg, CrCl > 30 mL/min) AND *Sequential Compression Device (SCD) Assessment and Plan - Plan 37-year-old black male admitted for deliberate drug overdose. Drug overdose -Minimize any beta-blockers given that the patient has taken a stimulant. ER physician has relayed to me that discussion with poison control revealed that the patient needs to be monitored for at least 6-8 hours after symptoms have resolved. -Keep patient on telemetry, neuro checks, suicide precautions, vital signs -Consult psychiatry for further assessment to ensure this is not deliberate suicidal behavior. Alonzo act for now. Hold home psychiatric medications which appear to be Seroquel, Remeron, and Abilify (which I believe is injection). - IVFs
[2018-02-20 09:04] VITALS: RESP 17
--- NOTE | 2018-02-20 09:20 | P.PNIM ---
Subjective Interval history: Feels great. No other concerns. No palpitations no dry mouth no chest pain or shortness of breath. Wants to go home. Tolerated diet. Urinating without difficulty. Denies any suicidal or homicidal ideations. States that he drank the cough syrup bottle to get high. Physical Exam Vital signs: Vital Signs 02/19/18 20:00 02/19/18 21:30 02/20/18 00:00 Temperature 98 F 97.9 F Pulse Rate 68 62 68 Respiratory Rate 18 18 Blood Pressure 134/68 150/105 H Pulse Oximetry 96 94 L 02/20/18 00:30 02/20/18 03:55 02/20/18 04:00 Temperature 98 F Pulse Rate 60 68 63 Respiratory Rate 18 Blood Pressure 137/88 Pulse Oximetry 97 02/20/18 08:00 Temperature 98.1 F Pulse Rate 61 Respiratory Rate 17 Blood Pressure 130/85 Pulse Oximetry 97 Intake & Output 02/19/18 02/20/18 02/20/18 18:59 06:59 18:59 Intake Total 240 / 240 Output Total 240 / 240 Balance 0 / 0 Weight 92.7 kg Intake: Oral 240 / 240 Output: Urine 240 / 240 Other: # Voids 1 Date of Last Bowel Movement 02/19/18 Narrative: GENERAL: This is a well-nourished, well-developed patient, in no apparent distress. CARDIOVASCULAR: Regular rate and rhythm without murmurs, gallops, or rubs. RESPIRATORY: Clear to auscultation. Breath sounds equal bilaterally. No wheezes , rales, or rhonchi. GASTROINTESTINAL: Abdomen soft, non-tender, nondistended. Normal active bowel sounds MUSCULOSKELETAL: Extremities without clubbing, cyanosis, or edema. NEURO: Alert & Oriented x4 to person, place, time, situation. Moves all ext x4 Assessment and Plan - Plan 37-year-old black male admitted for deliberate drug overdose. Drug overdosepatient counseled risk of for any recurrent use of drug and overdosing. -Minimize any beta-blockers given that the patient has taken a stimulant. ER physician has relayed to admitting physician that discussion with poison control revealed that the patient needs to be monitored for at least 6-8 hours after symptoms have resolved. -Telemetry has show patient with normal sinus rhythm neuro checks has been stable with alert and oriented 4 Patient has been hemodynamically stable. -Await psychiatry evaluation for further assessment to ensure this is not deliberate suicidal behavior. Status post salazar act Hold home psychiatric medications which appear to be Seroquel, Remeron, and Abilify until evaluated by psychiatry Supportive care with IV fluids will be discontinued this time. Discharge patient to home when cleared by psychiatry Condition on discharge: Improved Regular Diet as tolerated Ad Yaritza activity No new Rx written Continue home psychiatric medication as prescribed by psychiatry. Follow-up with primary care physician
[2018-02-20 12:45] VITALS: BP 114/72; PULSE 55; TEMP 97.8; O2SAT 96
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
== END 2018-02-20 16:04 | disposition home or self-care (01) ==
LOC: NEDDLT 10:41 → N04 10:41
PROVIDERS: ADMIT Family Medicine; ATTEND Family Medicine

== ENCOUNTER 2018-02-20 17:02 | Inpatient (IN) ==
[2018-02-20] MEDS ORDERED: LORazepam 1 MG Tablet PO PRN (18:19)
[2018-02-20] MEDS ORDERED: Aluminum/Magnesium/Simethacone Susp 30 ML UDC PO PRN (18:25)
[2018-02-21 07:11] LABS: Calcium 8.6 mg/dL (8.5-10.1); Carbon Dioxide 31.7 meq/L (21.0-32.0); Potassium 3.6 meq/L (3.5-5.1)
[2018-02-21 07:15] LABS: Chol/HDL Ratio 4.27 Ratio; HDL Cholesterol 45.8 mg/dL (40.0-60.0)
[2018-02-21] MEDS: buPROPion 100 MG ER 12 HR Tablet PO SCH ×2 (13:40→21:18)
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
[2018-02-21 16:40] LABS: Hemoglobin A1c 5.8 % (4.3-6.0)
[2018-02-22] MEDS: buPROPion 100 MG ER 12 HR Tablet PO SCH ×2 (08:57→21:28)
--- NOTE | 2018-02-22 14:07 | P.PNPSY ---
Subjective Remarks: Patient seen for follow up, chart reviewed. Discussion nursing staff reported the patient seclusive, compliant with medication denying any suicide ideations. Patient was found lying hospital bed noted B, cooperative. Patient states that he is feeling "better" although continues to be in bed most of the day was encouraged to participate in groups activities which he states he will try. Patient denying suicide ideations but continues report feeling depressed. Patient tolerated medications well with no adverse drug reactions reported. Review of Systems All other systems reviewed negative except as stated in HPI Mental Status Examination Appearance: Appropriate Consciousness: Alert Orientation: x4 Motor Activity: Normal gait Speech: Unremarkable Language: Adequate Fund of Knowledge: Inadequate Attention and Concentration: Adequate Memory: Unremarkable Mood: Sad Affect: Sad Thought Process & Associations: Intact, Linear Thought Content: Appropriate Hallucination Type: None Delusion Type: None Suicidal Ideation: Yes (Denies today) Suicidal Plan: No Suicidal Intention: No Homicidal Ideation: No Homicidal Plan: No Homicidal Intention: No Insight: Fair Judgment: Impulsive Assessment and Plan - Assessment (1) Schizoaffective disorder, depressive type Code(s): F25.1 - Schizoaffective disorder, depressive type Status: Acute - Plan Plan: Patient continues with depressed mood, continue with poor motivation requiring encouragement. Patient was encouraged to maintain personal hygiene. Will continue to increase paliperidone to 6mg PO daily, continue rest of medications. Continue to monitor mood and behavior. Continue to encourage patient to participate in groups and activities. Discharge planning in progress. Justification for Continued Inpatient Stay: At risk for further decompensation if at lower level of care.
[2018-02-23] MEDS: buPROPion 100 MG ER 12 HR Tablet PO SCH ×2 (09:14→20:25)
--- NOTE | 2018-02-23 12:31 | P.PNPSY ---
Subjective Chief Complaint: Schzioaffective disorder, depressive type Remarks: Chart reviewed and discussed with nursing staff. Rounded on patient with Francine MITCHELL. Patient was in day room watching television. He states that he sleeps intermittently. He denies any suicidal ideations. He was encouraged yesterday to be more social. The majority of time he is very seclusive but he is making attempts today to come out of his room. He denies any auditory or visual hallucinations. Patient is eating well and medication compliant. Review of Systems All other systems reviewed negative except as stated in HPI Mental Status Examination Appearance: Appropriate Consciousness: Alert Orientation: x4 Motor Activity: Normal gait Speech: Unremarkable Language: Adequate Fund of Knowledge: Inadequate Attention and Concentration: Adequate Memory: Unremarkable Mood: Sad Affect: Sad Thought Process & Associations: Intact, Linear Thought Content: Appropriate Hallucination Type: None Delusion Type: None Suicidal Ideation: Yes (Denies today) Suicidal Plan: No Suicidal Intention: No Homicidal Ideation: No Homicidal Plan: No Homicidal Intention: No Insight: Fair Judgment: Impulsive Assessment and Plan - Assessment (1) Schizoaffective disorder, depressive type Code(s): F25.1 - Schizoaffective disorder, depressive type Status: Acute - Plan Plan: Patient continues with depressed mood, continue with poor motivation requiring encouragement. Patient was encouraged to maintain personal hygiene. Paliperidone has been increased. Continue to monitor mood and behavior. Continue to encourage patient to participate in groups and activities. Discharge planning in progress. Justification for Continued Inpatient Stay: Moving patient to a lower level of care may result in his decompensation. Discharge Planning: Discharge planning in progress.
[2018-02-23] MEDS: Acetaminophen 325 MG Tablet PO PRN (17:49)
[2018-02-24] MEDS: buPROPion 100 MG ER 12 HR Tablet PO SCH ×2 (08:26→20:31)
--- NOTE | 2018-02-24 11:02 | P.PNPSY ---
Subjective Chief Complaint: Schzioaffective disorder, depressive type Remarks: Reviewed electronic medical record and discussed case with staff. Nurse reports that staff report patient slept well overnight however he claims that he slept poorly. Follow-up was conducted in the exam room with nurse present. Patient does indeed state that he slept poorly. However he reports a good appetite. There is no indication of internal stimulation or thought blocking. His speech is clear, logical, and organized. Mental Status Examination Appearance: Appropriate Consciousness: Alert Orientation: x4 Motor Activity: Normal gait Speech: Unremarkable Language: Adequate Fund of Knowledge: Inadequate Attention and Concentration: Adequate Memory: Unremarkable Mood: Sad Affect: Sad Thought Process & Associations: Intact, Linear Thought Content: Appropriate Hallucination Type: None Delusion Type: None Suicidal Ideation: Yes (Denies today) Suicidal Plan: No Suicidal Intention: No Homicidal Ideation: No Homicidal Plan: No Homicidal Intention: No Insight: Fair Judgment: Impulsive Assessment and Plan - Plan Plan: Patient will be reevaluated tomorrow by her attending psychiatrist. Continue with current treatment plan. Justification for Continued Inpatient Stay: Moving this patient to a less restrictive environment would likely result in decompensation.
[2018-02-24] MEDS: Acetaminophen 325 MG Tablet PO PRN (18:45)
[2018-02-25] MEDS: buPROPion 100 MG ER 12 HR Tablet PO SCH (09:12)
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
== END 2018-02-25 15:32 | disposition home or self-care (01) ==
LOC: H260 17:02
PROVIDERS: ADMIT Student in an Organized Health Care Education/Training Program; ATTEND Student in an Organized Health Care Education/Training Program